=== PATIENT | female | born 1960 | race Caucasian/White ===

== ENCOUNTER 2017-10-06 19:07 | Emergency (ER) | payer MEDICAID, SELFPAY ==
[2017-10-06 19:08] VITALS: BP 88/50; PULSE 61; RESP 14; TEMP 35.8; O2SAT 97; BMI 20.1
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
[2017-10-06] MEDS: Ondansetron ODT 4 MG Tablet PO (19:36)
[2017-10-06] MEDS: HYDROcodone Bitartrate/Apap 5/325 Tablet PO (19:39)
[2017-10-06] MEDS: Lidocaine/Epi/Tetracaine 50 ML 1 APPLIC TOPICAL (19:39)
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
== END 2017-10-06 21:05 | disposition home or self-care (01) ==
PROVIDERS: Emergency Provider Emergency Medicine
DX: S01.81XA Laceration without foreign body of other part of head, initial encounter (principal); S06.0X0A Concussion without loss of consciousness, initial encounter; S80.212A Abrasion, left knee, initial encounter; S80.211A Abrasion, right knee, initial encounter; M25.511 Pain in right shoulder; I95.9 Hypotension, unspecified; V29.88XA Motorcycle rider (driver) (passenger) injured in other specified transport accidents, initial encounter; Y93.9 Activity, unspecified; Y92.9 Unspecified place or not applicable
CPT/HCPCS: 12053; 70450; 70486; 71046; 72125; 73564; 99284

== ENCOUNTER 2020-04-27 18:39 | Emergency (ER) | payer MEDICAID, SELFPAY ==
[2020-04-27 18:40] VITALS: BP 102/66; PULSE 86; RESP 16; TEMP 36.6; O2SAT 99; BMI 22.3
[2020-04-27 18:42] VITALS: BP 102/66; PULSE 81; RESP 16; TEMP 36.6; O2SAT 97
[2020-04-27] MEDS: Amox/Clavulanate 875 MG Tablet PO (19:22)
--- NOTE | 2020-04-27 19:55 | ED.VISSUMM ---
- ER Visit Summary Date of Service: 04/27/20 Chief Complaint: Dog bite History of Present Illness: The patient is a 59 F who presents after a dog bite. She states that this was her own dog. Apparently he got startled and bit her. He bit her on the right thigh left rib and left chest area. The dog is up-to-date on immunizations. The patient needs a tetanus update. She is complaining pain in these local areas. She is able to control the bleeding at home. Physical Examination: Vital signs are reviewed. The chest exam shows some abrasions to the left chest wall and left anterior chest. She also has a small 1 behind the left ear. Her right thigh has multiple puncture wounds. There is a 1 cm puncture wound on the mid right lateral thigh. There is a 2 cm puncture wound on the medial right mid thigh area. Bleeding is controlled. No surrounding erythema. They are tender to palpation. Her neurologic exam is intact distally from these areas. Test Results: None performed Emergency Department Course and Treatment: Patient's tetanus was updated. She was given Augmentin. Under sterile conditions and using chlorhexidine to clean these areas, 2 cc of lidocaine was used to anesthetize the 1 and 2 cm puncture wounds. The 1 cm puncture wound was closed with 1, 5-0 nylon suture. The 2 cm puncture was closed with 2, 5?0 simple nylon sutures. These were covered with a dressing. Patient will have sutures out in 7 days. The sutures were loosely approximated due to the fact that it was a dog bite. I will place her on Augmentin for home. She will call her doctor for a wound check later this week or early next week. Treatment Plan: [] Disposition: Discharge Impression: Dog bite, right leg, right chest This note was generated with [employer] dictation software. It may contain incorrect words, spelling, and punctuation that were not noted in review of the chart prior to signing ED Disposition - Plan for ED Patient: Disposition: Home or Assisted Living Instructions: ED Dog Bite Prescriptions: Amox/Clavulanate Tablet [Augmentin Tablet] 875 mg PO Q12H #20 tab Prescription Printed Referrals: Care Physician,No Primary [Primary Care Provider] -
== END 2020-04-27 20:20 | disposition home or self-care (01) ==
LOC: ED 20:00
PROVIDERS: Emergency Provider Emergency Medicine
DX: S70.371A Other superficial bite of right thigh, initial encounter (principal); S20.372A Other superficial bite of left front wall of thorax, initial encounter; S00.472A Other superficial bite of left ear, initial encounter; W54.0XXA Bitten by dog, initial encounter; Y93.9 Activity, unspecified; Y92.9 Unspecified place or not applicable; Z72.0 Tobacco use
CPT/HCPCS: 12002; 90715; 99284

== ENCOUNTER 2021-08-01 10:45 | Outpatient (CLI) | payer MEDICAID, SELFPAY ==
--- NOTE | 2021-08-01 14:01 | PFTCOMP ---
COMPLETE PULMONARY FUNCTION TEST INTERPRETATION Brief HPI: Patient is a 60 year old female, currently under the care of Adrian Flores, who presents to [facility] for complete pulmonary function tests secondary to diagnosis of dyspnea. Respiratory therapist reports good effort and reproducible results. Interpretation: Forced expiration spirometry shows a severe large airways obstructive ventilatory defect with an FEV1 of 47% predicted. There is a significant bronchodilator response in FVC and FEV1 by strict ATS criteria. Spirograms are of good quality and plateau slowly, indicating slowly emptying areas of the lungs. The respiratory flow volume loop shows decreased expiratory flow rates at all lung volumes consistent with airway obstruction. Lung volumes by body plethysmography show an elevated total lung capacity at 6.37 L, 141% predicted. FRC and RV are elevated out of proportion. Lung volume measurements are consistent with hyperinflation and air-trapping. Diffusion capacity by carbon monoxide is relatively preserved at 71% predicted. The airway resistance is elevated. No previous pulmonary function tests were available for review. Impression: Partially reversible severe large airways obstructive ventilatory defect resulting in air trapping with hyperinflation, and a pattern consistent with COPD/asthma overlap syndrome
== END 2021-08-01 23:59 | disposition home or self-care (01) ==
LOC: PSN 10:46
PROVIDERS: Referring Provider Nurse Practitioner Family; Visit Provider Nurse Practitioner Family
DX: R06.00 Dyspnea, unspecified (principal)
CPT/HCPCS: 94060; 94726; 94729

== ENCOUNTER 2021-08-14 13:15 | Outpatient (CLI) | payer MEDICAID, SELFPAY ==
--- NOTE | 2021-08-14 13:18 | CT_ITS ---
STUDY: LOW DOSE CT LUNG CANCER SCREENING REASON FOR EXAM: Female, 60 years old. Lung cancer screening -- and gt; 30 pk yr hx;asymptomatic; current smoker RADIATION DOSAGE (If Supplied By Facility): CTDIvol = ( 1.46 ) mGy, DLP = ( 50.56 ) mGycm TECHNIQUE: No contrast was administered. Low dose technique was utilized (average mAS-38 and kVp 120). 1.25 mm axial source images with a slice interval of 1.25-mm were reconstructed in lung windows. 2.5 mm axial source images with a slice interval of 2.5-mm were reconstructed in lung windows. 5.0 mm axial source images with a slice interval of 5.0-mm were reconstructed in soft tissue windows. Nodule measured using lung windows on PACS and/or independent workstation with automated measurement of minimum and maximum diameter. Nodule measurement reported as average diameter rounded to the nearest whole number. Growth is defined as an increase ins size of greater than 1.5 mm. COMPARISON: Comparison is made with prior chest radiograph dated 06/28/2021. NODULES: No suspicious nodules are seen. Emphysema: Hyperinflation. Diffuse emphysematous changes involving both lungs. Findings suggest cervical scarring in the anterior medial aspect of the right middle lobe as well as the anterior medial aspect of the lingular segment of the left upper lobe. Endobronchial lesion: Unremarkable Aorta: Mild degree of atherosclerotic plaque formation of the aortic arch. Coronary arteries: Coronary artery calcification. Heart: Unremarkable Pulmonary artery: Unremarkable Mediastinal nodes: Unremarkable Other chest and abdominal findings: CT/Low Dose CT Lung Screening IMPRESSION: Lung-RADS category 2 - Continue annual screening with LDCT in 12 months. IMPORTANT NOTES FOR USE: ACR Lung-RADS Version 1.1 Assessment Categories Release Date: 2018 Category: Coded 0-4 bases on nodule(s) with highest degree of suspicion. Negative screen is defined as categories 1 and 2; a positive screen is defined as categories 3 and 4. Category 3 and 4A nodules that are unchanged on interval CT should be coded as category 2, and individuals returned to screening in 12 months. Category 4X: Category 3 or 4 nodules with additional imaging findings that increase the suspicion of lung cancer, such as spiculation, GGN that doubles in size in 1 year, enlarged lymph notes, etc. Category Modifiers: S (significant finding unrelated to lung cancer) Electronically Signed: Fritz Bautista MD at 14:17 EDT ,
== END 2021-08-14 23:59 | disposition home or self-care (01) ==
LOC: CT 13:16
PROVIDERS: Referring Provider Nurse Practitioner Family; Visit Provider Nurse Practitioner Family
DX: Z87.891 Personal history of nicotine dependence (principal); Z12.2 Encounter for screening for malignant neoplasm of respiratory organs
CPT/HCPCS: 71271

== ENCOUNTER 2021-08-16 16:01 | Outpatient (CLI) | payer MEDICAID, SELFPAY ==
[2021-08-16 16:39] LABS: Absolute Lymphocyte Count 1.92 X10^3/uL (0.83-4.51); Absolute Neutrophil Count 3.6 X10^3/uL (2.0-7.7); Basophil# 0.09 X10^3/uL; Basophil% 1.4 % (0-1); Eosinophil# 0.21 X10^3/uL; Eosinophils% 3.3 % (0-5); Hematocrit 45.1 % (37-47); Hemoglobin 14.4 g/dL (12.0-15.0); Lymphocyte # 1.92 X10^3/ul (0.83-4.51); Lymphocyte % 30.6 % (19-41); Mean Corp Hgb Conc 31.9 g/dL (32-36); Mean Corpuscular Hgb 29.4 pg (27.0-32.0); Mean Corpuscular Volume 92.2 fL (81-99); Mean Platelet Vol. 11.1 fl (6.2-12.0); Monocyte# 0.47 X10^3/uL; Monocyte% 7.5 % (0-10); NRBC Flagged by Analyzer 0 % (0-5); Neutrophil # 3.56 X10^3/uL (2.7-7.7); Neutrophil % 56.9 % (47-70); Platelet Count 228 K/mm3 (150-450); RBC Distribution Width CV 13.7 % (11.6-14.6); RBC Distribution Width SD 46.8 fl (35.1-43.9); Red Blood Count 4.89 M/mm3 (4.2-5.4); White Blood Count 6.3 K/mm3 (4.4-11.0)
[2021-08-16 16:58] LABS: ALB/GLOB Ratio 1.2 RATIO (0.9-2.4); AST(SGOT) 11 U/L (15-37); Alanine Aminotransfer ALT/SGPT 20 U/L (13-56); Albumin, Serum 3.5 g/dL (3.2-5.0); Alkaline Phosphatase 69 U/L (45-117); Anion Gap 0 (5-15); BUN 14 mg/dL (7-18); BUN/Creat Ratio 20.2 RATIO (10-20); Calcium,Total 8.6 mg/dL (8.5-10.1); Chloride 108 mmol/L (98-107); Creatinine, Serum 0.69 mg/dL (0.55-1.02); EST Glomerular Filtration Rate 92 mL/min (>60); Est Glom Filt Rate - Afr Amer 111 mL/min (>60); Globulin 2.9 g/dL (2.2-4.2); Glucose 101 mg/dL (74-106); Potassium 4.1 mmol/L (3.5-5.1); Protein, Total 6.4 g/dL (6.4-8.2); Sodium Level 140 mmol/L (136-145)
== END 2021-08-16 23:59 | disposition home or self-care (01) ==
LOC: BIMLAB 16:02
PROVIDERS: PCP Internal Medicine; Referring Provider Internal Medicine; Visit Provider Internal Medicine
DX: J44.9 Chronic obstructive pulmonary disease, unspecified (principal)
CPT/HCPCS: 36415; 80053; 85025

== ENCOUNTER → 2022-02-18 | Outpatient (CLI) | payer MEDICAID, SELFPAY ==
--- NOTE | 2022-02-18 09:52 | RAD_ITS ---
STUDY: X-RAY - RIGHT ANKLE REASON FOR EXAM: Female, 61 years old. Bilateral ankle pain TECHNIQUE: 3 view(s) of the ankle. COMPARISON: None. FINDINGS: Normal alignment. Normal mortise spacing. Trace anterior ankle effusion. No fracture. No aggressive osseous lesion. Unremarkable soft tissues. RAD/Ankle min 3 Views IMPRESSION: Nonspecific trace ankle effusion. Electronically Signed: John Aden MD at 5:11 EDT ,
--- NOTE | 2022-02-18 09:53 | RAD_ITS ---
STUDY: X-RAY - LEFT ANKLE REASON FOR EXAM: Female, 61 years old. BILAT ANKLE PAIN TECHNIQUE: 3 view(s) of the ankle. COMPARISON: Right ankle radiograph on same day. FINDINGS: Normal ankle alignment and mortise spacing. No fracture or osteochondral defect. No effusion. Mild tibiotalar osteophyte formation. Degenerative changes along the posterior subtalar joint.. Small calcaneal and plantar calcaneal enthesophytes. RAD/Ankle min 3 Views IMPRESSION: No evidence of acute injury. Mild hindfoot cysts degenerative changes. Electronically Signed: John Aden MD at 5:13 EDT ,
--- NOTE | 2022-02-18 09:53 | RAD_ITS ---
STUDY: X-RAY - LEFT KNEE REASON FOR EXAM: Female, 61 years old. BILAT KNEE PAIN TECHNIQUE: 3 view(s) of the knee. COMPARISON: None. FINDINGS: Mild medial compartment joint space narrowing. Minimal patellar and medial compartment osteophyte formation. Small quadriceps tendon enthesophyte. No fracture or osteochondral defect. No dislocation. No effusion. Unremarkable soft tissues. RAD/Knee 3 Views IMPRESSION: Mild medial and patellofemoral compartment osteoarthritis No acute osseous finding. Electronically Signed: John Aden MD at 5:10 EDT ,
--- NOTE | 2022-02-18 10:00 | RAD_ITS ---
STUDY: X-RAY - RIGHT KNEE REASON FOR EXAM: Female, 61 years old. Bilateral Knee Pain TECHNIQUE: 3 view(s) of the knee. COMPARISON: None. FINDINGS: Normal alignment. No fracture or osteochondral defect. Moderate quadriceps patellar enthesophyte. No effusion. Unremarkable soft tissues. RAD/Knee 3 Views IMPRESSION: No evidence of acute injury. Mild degenerative change for age. Electronically Signed: John Aden MD at 5:07 EDT ,
== END | disposition home or self-care (01) ==
LOC: RAD 09:50
PROVIDERS: PCP Internal Medicine; Referring Provider Internal Medicine; Visit Provider Internal Medicine
DX: M25.561 Pain in right knee (principal); M25.562 Pain in left knee; M25.571 Pain in right ankle and joints of right foot; M25.572 Pain in left ankle and joints of left foot
CPT/HCPCS: 73562; 73610

== ENCOUNTER 2022-03-21 12:00 | Outpatient (RCR) | payer MEDICAID, SELFPAY ==
--- NOTE | 2022-02-26 14:28 | HP.PTEVAL_ITS ---
Patient's Visit Information SHANNAN RUIZ is a 61 year old F referred to Physical Therapy by Dr. Helen Rocha MD with a diagnosis of B knee pain. Date of Evaluation: 02/26/22 Physical Therapist: Hesham Peng, PT, ATC - Visit Plan Frequency: 2-3x /Week Duration: 4-6 Weeks Plan: B LE strengthening, balance and proprio, core strengthening, bike, and HEP - Subjective Pt reports she has had B LE achiness for several years which has progressively worsened. Pt reports her L ankle is her greatest concern. Pt reports when she moves her ankle in a circular pattern, and experiences a sharp stabbing pain. Pt reports she has to get surgery on her L ankle in the near future, and is here to strengthen her LE's in preparation for surgery. Pt denies tingling or numbness in LE's at this time, just a deep achy pain. Pt denies any recent or significant injury to her LE's that would have precipitated this pain. Pt reports on days where she has to work long hours, she has sleep difficulty secondary to pain. Pt notes she usually only sleeps 2-3 hours a night in general. Pt has stairs at home, and notes she must negotiate them one step at a time and her L ankle wants to give out on her. Pt reports 2 falls in the past secondary to her L LE giving out on her, with the most recent one being 2 months ago. 5/10 pain at rest, 10/10 pain at worst (last time this level of pain occurred, pt was sleeping) - Pain L ankle Pain Intensity (Out of 10): 5 Pain Intensity Range: 10 - Objective Neuro: B LE sensation is WNL to light touch. B patellar reflex= 2/3. MMT: R LE is grossly 4/5 throughout while L LE is grossly 4-/5 throughout. ROM: B LE's are WFL when compared bilaterally. Gait: Pt is able to ambulate greater than 1000' I without difficulty. Stairs: Pt is able to negotiate one flight with the use of 2 handrails and reciprocally - Balance/Special Test Scores Lower Extremity Functional Score: 53 - Goals Goal 1:: Increase B LE strength x 1 grade to aid with stair negotiation Goal Time Frame: 4-6 Weeks Goal 2:: Pt will be able to negotiate 10 stairs with one UE reciprocally to aid with I in community Goal Time Frame: 4-6 Weeks Goal 3:: Decrease B LE pain x 50% to aid with sleep Goal Time Frame: 4-6 Weeks Goal 4:: I with HEP Goal Time Frame: 4-6 Weeks - Rehabilitation Potential Physical Therapy Diagnosis: Pt has B knee pain, B LE weakness, and difficulty with stair negotiation secondary to B LE debility Rehabilitation Potential: Good - Anticipated Interventions Patient/Client Instruction: Educate patient on: Condition, Plan of Care For the Purpose of:: To improve self management Therapeutic Exercise to Include: Strength training, Endurance training, Balance training, Gait and locomotor training For the Purpose of:: To decrease pain, To improve muscle performance and motor function, To improve ability of physical actions for home/community/work/leisure Thank you for the opportunity to evaluate your patient. For Medicare and Medicare HMO plans, please review the plan of care and approve it. It will need to be FAXED BACK to us at [phone] for Medicare purposes. For Medicare only, by signing this I certify the plan of care. Please let me know if there are questions or concerns regarding this plan of care. Physician Signature: Date:
== END 2022-03-21 19:00 | disposition home or self-care (01) ==
LOC: PT 12:00
PROVIDERS: PCP Internal Medicine; Referring Provider Internal Medicine; Visit Provider Internal Medicine
DX: M25.561 Pain in right knee (principal); M25.562 Pain in left knee
CPT/HCPCS: 97110; 97161

== ENCOUNTER → 2022-09-24 | Outpatient (CLI) | payer MEDICAID, SELFPAY ==
--- NOTE | 2022-09-24 13:07 | CT_ITS ---
STUDY: LOW DOSE CT LUNG CANCER SCREENING REASON FOR EXAM: Female, 61 years old. Lung cancer screening -- and gt;20 pk yr hx;current smoker;asymptomatic RADIATION DOSAGE (If Supplied By Facility): CTDIvol = ( 1.59 ) mGy, DLP = ( 54.60 ) mGycm TECHNIQUE: No contrast was administered. Low dose technique was utilized (average mAS-38 and kVp 120). 1.25 mm axial source images with a slice interval of 1.25-mm were reconstructed in lung windows. 2.5 mm axial source images with a slice interval of 2.5-mm were reconstructed in lung windows. 5.0 mm axial source images with a slice interval of 5.0-mm were reconstructed in soft tissue windows. COMPARISON: Comparison is made with prior study dated August 14, 2021. NODULES: No suspicious nodules are seen. Emphysema: Hyperinflation. Emphysematous changes more prominent in the upper lobes. Endobronchial lesion: None Aorta: Atherosclerotic plaque formation of the aortic arch. CORONARY ARTERIES: Coronary artery calcification is seen. Heart: Unremarkable Pulmonary artery: Unremarkable Mediastinal nodes: Small mediastinal lymph nodes. Other chest and abdominal findings: CT/Low Dose CT Lung Screening IMPRESSION: Lung-RADS category 2 - Continue annual screening with LDCT in 12 months. IMPORTANT NOTES FOR USE: ACR Lung-RADS Version 1.1 Assessment Categories Release Date: 2018 Category: Coded 0-4 bases on nodule(s) with highest degree of suspicion. Negative screen is defined as categories 1 and 2; a positive screen is defined as categories 3 and 4. Category 3 and 4A nodules that are unchanged on interval CT should be coded as category 2, and individuals returned to screening in 12 months. Category 4X: Category 3 or 4 nodules with additional imaging findings that increase the suspicion of lung cancer, such as spiculation, GGN that doubles in size in 1 year, enlarged lymph notes, etc. Category Modifiers: S (significant finding unrelated to lung cancer) Electronically Signed: Fritz Bautista MD at 13:42 EDT ,
== END | disposition home or self-care (01) ==
LOC: CT 13:07
PROVIDERS: PCP Internal Medicine; Referring Provider Nurse Practitioner Family; Visit Provider Nurse Practitioner Family
DX: Z87.891 Personal history of nicotine dependence (principal); Z12.2 Encounter for screening for malignant neoplasm of respiratory organs
CPT/HCPCS: 71271

== ENCOUNTER → 2022-11-25 | Outpatient (CLI) | payer MEDICAID, SELFPAY ==
[2022-11-25 12:35] LABS: Absolute Lymphocyte Count 1.79 X10^3/uL (0.83-4.51); Absolute Neutrophil Count 4.9 X10^3/uL (2.0-7.7); Basophil# 0.08 X10^3/uL; Eosinophil# 0.19 X10^3/uL; Eosinophils% 2.5 % (0-5); Hematocrit 46.5 % (37-47); Hemoglobin 14.8 g/dL (12.0-15.0); Lymphocyte # 1.79 X10^3/ul (0.83-4.51); Lymphocyte % 23.5 % (19-41); Mean Corp Hgb Conc 31.8 g/dL (32-36); Mean Corpuscular Hgb 29.7 pg (27.0-32.0); Mean Corpuscular Volume 93.2 fL (81-99); Mean Platelet Vol. 11.4 fl (6.2-12.0); Monocyte# 0.62 X10^3/uL; Monocyte% 8.1 % (0-10); NRBC Flagged by Analyzer 0 % (0-5); Neutrophil # 4.91 X10^3/uL (2.7-7.7); Neutrophil % 64.5 % (47-70); Platelet Count 258 K/mm3 (150-450); RBC Distribution Width CV 14.1 % (11.6-14.6); Red Blood Count 4.99 M/mm3 (4.2-5.4); White Blood Count 7.6 K/mm3 (4.4-11.0)
[2022-11-25 13:09] LABS: ALB/GLOB Ratio 1.1 RATIO (0.9-2.4); AST(SGOT) 14 U/L (15-37); Alanine Aminotransfer ALT/SGPT 19 U/L (13-56); Albumin, Serum 3.6 g/dL (3.2-5.0); Alkaline Phosphatase 77 U/L (45-117); Anion Gap 2 (5-15); BUN 11 mg/dL (7-18); BUN/Creat Ratio 13.7 RATIO (10-20); Calcium,Total 8.8 mg/dL (8.5-10.1); Chloride 110 mmol/L (98-107); EST Glomerular Filtration Rate 77 mL/min (>60); Est Glom Filt Rate - Afr Amer 94 mL/min (>60); Globulin 3.2 g/dL (2.2-4.2); Glucose 92 mg/dL (74-106); Potassium 4.1 mmol/L (3.5-5.1); Protein, Total 6.8 g/dL (6.4-8.2); Sodium Level 142 mmol/L (136-145); T4 Free Direct 0.98 ng/dL (0.76-1.46); Thyroid Stim Hormone (TSH) 2.57 uIU/mL (0.358-3.74)
== END | disposition home or self-care (01) ==
LOC: BIMLAB 11:14
PROVIDERS: PCP Internal Medicine; Visit Provider Internal Medicine
DX: Z13.29 Encounter for screening for other suspected endocrine disorder (principal); J44.9 Chronic obstructive pulmonary disease, unspecified
CPT/HCPCS: 36415; 80053; 84439; 84443; 85025

== ENCOUNTER 2024-03-03 04:30 | Emergency (ER) | payer SELFPAY ==
[2024-03-03] VITALS (7 sets, daily range): BP systolic 97–151; BP diastolic 84–95; PULSE 115–122; RESP 20–32; TEMP 35.7–36.9; O2SAT 90–95; BMI 22.4
--- NOTE | 2024-03-03 04:50 | RAD_ITS ---
EXAM: XR CHEST, 1 VIEW CLINICAL INDICATION: cough TECHNIQUE: Frontal view of the chest. COMPARISON: 2 view chest 06/28/2021 FINDINGS: LUNGS AND PLEURAL SPACES: Bibasilar airspace disease. Hyperinflation. No pneumothorax. No effusion. HEART: Unremarkable. Cardiac silhouette not enlarged. MEDIASTINUM: Central airways and mediastinal contour are unremarkable. BONES/JOINTS: Unremarkable. No acute fracture. SOFT TISSUES: Unremarkable. RAD/Chest 1 View (Portable) IMPRESSION: Bibasilar airspace disease. Findings may indicate atelectasis or infection, superimposed on emphysematous changes. Electronically Signed: Hesham Lynn MD at 5:55 EDT ,
--- NOTE | 2024-03-03 04:51 | EKG12_ITS ---
Test Reason : sob Blood Pressure : / mmHG Vent. Rate : 115 BPM Atrial Rate : 115 BPM P-R Int : 174 ms QRS Dur : 072 ms QT Int : 326 ms P-R-T Axes : 076 086 067 degrees QTc Int : 450 ms Sinus tachycardia Possible Left atrial enlargement Nonspecific ST abnormality Abnormal ECG Confirmed by Orlando Fragoso ([id number]), photographic editor ROSELIA RAMOS ([id number]) on 03/04/2024 6:38:52 AM Referred By: Angel Confirmed By:Orlando Fragoso
[2024-03-03] MEDS: Albuterol 2.5 MG/3 ML VIAL.NEB. INHALATION (04:54)
[2024-03-03] MEDS: Ipratropium/Albuterol Sulfate 3 ML AMPUL.NEB INHALATION ×2 (04:54)
[2024-03-03] MEDS: MethylPREDNISolone 125 MG/2 ML Vial IV (05:07)
[2024-03-03 05:12] LABS: Absolute Lymphocyte Count 2.33 X10^3/uL (0.83-4.51); Absolute Neutrophil Count 7.1 X10^3/uL (2.0-7.7); Basophil# 0.08 X10^3/uL; Basophil% 0.7 % (0-1); Eosinophil# 0.14 X10^3/uL; Eosinophils% 1.3 % (0-5); Hematocrit 45.4 % (37-47); Lymphocyte # 2.33 X10^3/ul (0.83-4.51); Lymphocyte % 21.5 % (19-41); Mean Corpuscular Hgb 30.4 pg (27.0-32.0); Mean Corpuscular Volume 92.1 fL (81-99); Mean Platelet Vol. 11.1 fl (6.2-12.0); Monocyte# 1.12 X10^3/uL; Monocyte% 10.3 % (0-10); NRBC Flagged by Analyzer 0 % (0-5); Neutrophil # 7.12 X10^3/uL (2.7-7.7); Neutrophil % 65.8 % (47-70); Platelet Count 236 K/mm3 (150-450); RBC Distribution Width CV 13.6 % (11.6-14.6); RBC Distribution Width SD 46.5 fl (35.1-43.9); Red Blood Count 4.93 M/mm3 (4.2-5.4); White Blood Count 10.8 K/mm3 (4.4-11.0)
[2024-03-03 05:28] LABS: Anion Gap 2 (5-15); BUN 6 mg/dL (7-18); BUN/Creat Ratio 8.8 RATIO (10-20); Chloride 105 mmol/L (98-107); Creatinine, Serum 0.68 mg/dL (0.55-1.02); EST Glomerular Filtration Rate 93 mL/min (>60); Est Glom Filt Rate - Afr Amer 113 mL/min (>60); Estimated Creatinine Clearance 74.07 ml/min; Glucose 152 mg/dL (74-106); Potassium 3.8 mmol/L (3.5-5.1); Sodium Level 140 mmol/L (136-145)
--- NOTE | 2024-03-03 05:55 | EDS_ITS ---
HPI History of Present Illness Chief Complaint: Shortness of Breath Informant: patient and family Narrative Narrative: Patient is a 63-year-old female with past medical history of COPD who continues to smoke. She states she has had multiple weeks of shortness of breath and cough. She reports that her symptoms used to be controlled with albuterol and Symbicort but that she lost her insurance and therefore has not been able to afford the medication. She states she continues to smoke although she has cut back. She denies any known sick contacts and states she has had no fevers or chills or chest pain. She states that her shortness of breath has worsened continuously as she has been out of her medications and secondary to this comes in for evaluation [facility] Medical History (Updated 03/03/24 @ 06:[address] Milton Kong, DO) Mammogram declined Colonoscopy refused Fatigue Screening for thyroid disorder Tobacco use disorder, continuous Bilateral ankle pain Bilateral knee pain Asthma-COPD overlap syndrome Encounter to establish care History of tobacco use Encounter for screening for malignant neoplasm of lung in current smoker with 30 pack year history or greater Dyspnea COPD (chronic obstructive pulmonary disease) Encounter for screening for COVID-19 Acute bronchitis, unspecified Home Medications ?Medication ?Instructions ?Recorded ?Last Taken ?Type acetaminophen 160 mg chewable 640 mg PO ONCE 07/05/21 Unknown History tablet (Children's Tylenol) budesonide-formoterol HFA 160 See Rx Instructions .Route 03/25/23 Unknown Rx mcg-4.5 mcg/actuation aerosol .COMPLEX #11 grams inhaler albuterol sulfate 90 mcg/actuation See Rx Instructions .Route 05/06/23 Unknown Rx aerosol inhaler .COMPLEX #8.5 grams albuterol sulfate 90 mcg/actuation 2 puff inhalation Q4H PRN PRN 03/03/24 Unknown Rx aerosol inhaler (Ventolin HFA) Wheezing/SOB #1 device fluticasone furoate 100 1 inh inhalation DAILY #60 ea 03/03/24 Unknown Rx mcg-vilanterol 25 mcg/dose inhalation powder (Breo Ellipta) prednisone 10 mg tablet 10 mg PO DAILY #63 tabs 03/03/24 Unknown Rx Allergy/AdvReac Type Severity Reaction Status Date / Time weir Allergy unknown Verified 03/03/24 04:30 Fish Containing Products Allergy Vomiting Verified 03/03/24 04:30 macadamia nut oil Allergy Hives Verified 03/03/24 04:30 Family History Mother Cancer Hodgkin disease Hypertension Diabetes Brother Cancer Diabetes Son Cancer Surgical History History of hernia repair History of dental surgery Social History Smoking Status: Current every day smoker tobacco type: cigarettes Tobacco: How many years used: 40 how long ago did patient quit smoking: smoked [id number], then [id number], now smokes 5-6 cigarettes/day alcohol intake: current alcohol intake frequency: holidays/special occasions only substance use type: does not use what type of physical activity do you participate in: none ROS ROS ED Constitutional Constitutional ED: Denies chills or fever(s) Eyes Eyes: Denies change in vision ENT ENT ED: Denies sore throat Cardiovascular Cardiovascular: Denies chest pain Respiratory/Chest Respiratory/Chest: Reports cough and dyspnea Gastrointestinal Gastrointestinal: Denies abdominal pain, diarrhea, nausea or vomiting Genitourinary Genitourinary ED: Denies dysuria Musculoskeletal Musculoskeletal: Denies myalgias Integumentary Denies rash Neurologic Neurologic: Denies headache(s) Hematologic/Lymphatic Hematologic/Lymphatic: Denies easy bleeding or easy bruising Allergic/Immunologic Allergic/Immunologic ED: Denies mouth swelling or tongue swelling EXAM Physical Exam Const Vital Signs: 03/03/24 04:30 03/03/24 04:35 03/03/24 04:40 Temperature 96.3 F L 98.5 F Temperature Source Temporal Oral Pulse Rate 115 H 118 H Respiratory Rate 32 H 25 H Respiratory Effort Short of Breath Respiratory Depth Deep Respiratory Pattern Tachypnea Blood Pressure 97/84 H 138/95 H Blood Pressure Mean 88 109 Pulse Ox 90 94 Oxygen Delivery Method Room Air Room Air Room Air 03/03/24 04:56 03/03/24 05:30 03/03/24 05:34 Temperature 98.5 F Temperature Source Oral Pulse Rate 119 H 122 H 122 H Respiratory Rate 23 H 21 H 21 H Respiratory Effort Respiratory Depth Respiratory Pattern Tachypnea Blood Pressure 151/87 H 151/87 H Blood Pressure Mean 108 108 Pulse Ox 95 95 Oxygen Delivery Method Room Air Room Air 03/03/24 05:55 Temperature 98.5 F Temperature Source Pulse Rate 121 H Respiratory Rate 20 H Respiratory Effort Respiratory Depth Respiratory Pattern Blood Pressure 134/93 H Blood Pressure Mean 106 Pulse Ox 94 Oxygen Delivery Method Positive well nourished and well developed General Appearance ED: well developed; Negative for pallor HEENT HEENT Narrative: No tongue or lip swelling no oral lesions no airway edema or compromise There is cobblestoning noted in the posterior pharynx consistent with sinus drainage without secondary findings to suggest infection Eyes PERRL and EOMs intact bilaterally General Eye ED: Negative for pale conjunctiva or scleral icterus Neck supple and no JVD Neck Narrative: No crepitance palpated Chest Wall palpation of chest normal Chest Narrative: No bony deformity or crepitance Resp Resp Narrative: Patient's breath sounds are severely diminished throughout with diffuse inspiratory and expiratory wheezing. Patient is in moderate respiratory d istress with tachypnea and accessory muscle use Cardio regular rhythm Rate: tachycardic and other Other Details: Radial and carotid pulses are equal and symmetric Extremity normal to inspection Extremity Narrative: No asymmetric edema no pitting edema negative Homans' sign bilaterally Neuro oriented x3, CN's II-XII intact bilaterally and no sensory deficits noted Sensorium / Orientation: alert Motor Exam: strength 5/5 throughout Psych mental status grossly normal Skin no rashes or lesions noted General Skin Exam: Negative for jaundice or pallor MDM MDM MDM Narrative Medical decision making narrative: Patient arrived to the ER tachypneic but satting in the low to mid 90s on room air. History and exam is consistent with COPD exacerbation although this could be secondary to pneumonia or pneumothorax or pleural effusion or potential viral infection such as COVID or influenza or RSV. I discussed with patient obtaining a viral swab but she does not want 1 performed. There is concern that her s ymptoms could be related to acute blood loss anemia or acute kidney injury or electrolyte abnormality. She did agree to blood work and a chest x-ray so those were ordered. Labs revealed no clinically significant findings and chest x-ray revealed COPD changes to the lungs without infiltrate pneumothorax or pleural effusion. She was given IV Solu-Medrol as well as 2 DuoNebs and 1 albuterol. With the breathing treatments and steroids she had improvement of her breath sounds and improvement in her work of breathing. I discussed with patient potential admission secondary to persistent work of breathing although it has improved from her initial evaluation. The patient states after the medication she feels much better and that if she can only have her medication for home she believes she will do just fine. Therefore as the patient is requesting to go home and she has had improvement in her work of breathing and her pulse ox remains at a stable value for history of COPD between 90 and 95% I will prescribe an albuterol rescue inhaler Breo as a maintenance Hailer and a prednisone taper to help control symptoms. Patient does agree to return to the hospital if her symptoms worsen despite outpatient therapy or if she has any further concerns. History & Record Review Discussion w/independent historian: Patient and Family Lab Data Attestation: I reviewed the patient's lab results. Labs: Laboratory Results - last 24 hr 03/03/24 04:38 WBC 10.8 RBC 4.93 Hgb 15.0 Hct 45.4 MCV 92.1 MCH 30.4 MCHC 33.0 RDW Std Deviation 46.5 H RDW Coeff of Kimberly 13.6 Plt Count 236 MPV 11.1 Immature Gran % (Auto) 0.400 Neut % (Auto) 65.8 Lymph % (Auto) 21.5 [place] % (Auto) 10.3 H Eos % (Auto) 1.3 Baso % (Auto) 0.7 Absolute Neuts (auto) 7.1 Absolute Lymphs (auto) 2.33 Nucleated RBC % 0 Sodium 140 Potassium 3.8 Chloride 105 Carbon Dioxide 33.0 H Anion Gap 2 L BUN 6 L Creatinine 0.68 Estim Creat Clear Calc 74.07 Est GFR (MDRD) Af Amer 113 Est GFR (MDRD) Non-Af 93 BUN/Creatinine Ratio 8.8 L Glucose 152 H Calcium 9.0 Magnesium 2.0 B-Natriuretic Peptide Cancelled Radiography Diagnostic Testin view chest x-ray as interpreted by the emergency medicine physician reveals hyperinflated lungs consistent with COPD without pneumothorax infiltrate or ple ural effusion Discharge Plan Triage Chief Complaint: Shortness of Breath ED Provider: Milton Kong Dx/Rx/DC Orders Clinical Impression: COPD exacerbation, Tobacco use disorder, continuous Instructions: COPD: Wheezing and Chest Tightness Prescriptions: New albuterol sulfate [Ventolin HFA] 90 mcg/actuation HFA aerosol inhaler 2 puff inhalation Q4H PRN PRN (Reason: Wheezing/SOB) Qty: 1 3RF prednisone 10 mg tablet 10 mg PO DAILY Qty: 63 0RF Rx Instructions: 60 mg p.o. daily ?3 days, 50 mg p.o. daily ?3 days, 40 mg p.o. daily ?3 days, 30 mg p.o. daily ?3 days, 20 mg p.o. daily ?3 days, 10 mg p.o. daily ?3 days. fluticasone furoate-vilanterol [Breo Ellipta] 100-25 mcg/dose blister with device 1 inh inhalation DAILY Qty: 60 2RF No Action acetaminophen [Children's Tylenol] 160 mg tablet,chewable 640 mg PO ONCE budesonide-formoterol 160-4.5 mcg/actuation HFA aerosol inhaler See Rx Instructions .ROUTE .COMPLEX Qty: 11 1RF Dose Instruction: Inhale 2 puffs by mouth twice daily Rx Instructions: Inhale 2 puffs by mouth twice daily albuterol sulfate 90 mcg/actuation HFA aerosol inhaler See Rx Instructions .ROUTE .COMPLEX Qty: 8.5 0RF Dose Instruction: INHALE 2 PUFFS BY MOUTH EVERY 6 HOURS NEEDED FOR SHORTNESS OF BREATH FOR WHEEZING Rx Instructions: INHALE 2 PUFFS BY MOUTH EVERY 6 HOURS NEEDED FOR SHORTNESS OF BREATH FOR WHEEZING Stand Alone Forms: ED Work / School Excuse Primary Care Provider: Helen Rocha Referrals: Helen Rocha MD [Primary Care Provider] - Activity Restrictions/Additional Instructions: Use the steroid and inhalers as directed to help control your COPD and return to the ER if you have any further concerns or worsening of symptoms despite the treatment Print Language: Macanese Disposition Disposition: Home, Self Care
[2024-03-03] MEDS: Albuterol Sulfate 8 gm Inhaler (60 puffs) 2 PUFF INHALATION (06:07)
== END 2024-03-03 06:07 | disposition home or self-care (01) ==
PROVIDERS: Emergency Provider Emergency Medicine; PCP Internal Medicine; Visit Provider Emergency Medicine
DX: J44.1 Chronic obstructive pulmonary disease with (acute) exacerbation (principal); F17.210 Nicotine dependence, cigarettes, uncomplicated; Z79.51 Long term (current) use of inhaled steroids
CPT/HCPCS: 71045; 80048; 83735; 85025; 93005; 94640; 96374; 99284; A4216

== ENCOUNTER 2024-06-09 08:43 | Observation (INO) | payer MEDICAID, SELFPAY ==
[2024-06-09] VITALS (15 sets, daily range): BP systolic 104–171; BP diastolic 72–108; PULSE 72–117; RESP 16–24; TEMP 35.9–36.9; O2SAT 88–96; BMI 21.7; BMI 24.5
--- NOTE | 2024-06-09 08:58 | RAD_ITS ---
HISTORY: dyspnea. TECHNIQUE: XR Chest 1 View. COMPARISON: 03/03/2024. FINDINGS: CARDIOMEDIASTINAL BORDERS: Cardiac silhouette within normal limits in size. Mediastinal contour unremarkable with calcification of the aortic knob. LUNGS: Chronic hyperinflation with decreased linear opacities in the lung bases. PLEURA: No pleural effusion or pneumothorax seen. OSSEOUS STRUCTURES: Small bone island in the right humeral head incidentally noted. RAD/Chest 1 View (Portable) IMPRESSION: Mild atelectasis or inflammation in the lung bases, decreased from prior. Electronically Signed: Rocío Guerrero MD at 9:40 EST ,
--- NOTE | 2024-06-09 08:58 | EKG12_ITS ---
Test Reason : SOB Blood Pressure : */* mmHG Vent. Rate : 110 BPM Atrial Rate : 110 BPM P-R Int : 138 ms QRS Dur : 76 ms QT Int : 336 ms P-R-T Axes : 83 80 68 degrees QTcB Int : 454 ms Sinus tachycardia Otherwise normal ECG Confirmed by CRISTOPHER WALDEN, REED ([id number]), visual effects editor ROSELIA RAMOS ([id number]) on 06/15/2024 7:05:37 AM Referred By: UJAN Confirmed By: REED NICHOLAS MD
--- NOTE | 2024-06-09 08:59 | ED.VIS.DYS ---
HPI History of Present Illness Chief Complaint: Shortness of Breath Detail of Chief Complaint: Shortness of breath Informant: patient Narrative Narrative: Patient presents to the emergency department complaint shortness of breath that started about 2 to 3 days ago. Patient was seen by her primary care physician 2 days ago and started on Levaquin as well as prednisone and bends and 8. Patient initially had cough but with peds and 8 is better. At times cough productive of some white phlegm. This morning started with some left-sided chest discomfort as intermittent and sharp. Denies recent travel or surgery. She tells me 2 days ago in her PCPs office her O2 sat was 89 to 91% at that time. She does not wear home O2. She has history of COPD and asthma. She continues to smoke but trying to quit. [facility] Medical History Mammogram declined Colonoscopy refused Fatigue Screening for thyroid disorder Tobacco use disorder, continuous Bilateral ankle pain Bilateral knee pain Asthma-COPD overlap syndrome Encounter to establish care History of tobacco use Encounter for screening for malignant neoplasm of lung in current smoker with 30 pack year history or greater Dyspnea COPD (chronic obstructive pulmonary disease) Encounter for screening for COVID-19 Acute bronchitis, unspecified Home Medications ?Medication ?Instructions ?Recorded ?Last Taken ?Type budesonide-formoterol HFA 160 See Rx Instructions .Route 03/31/24 06/09/24 Rx mcg-4.5 mcg/actuation aerosol .COMPLEX #11 grams inhaler inhalational spacing device #1 ea 03/31/24 Unknown Rx (BreatheRite MDI Spacer) benzonatate 100 mg capsule 100 mg PO BID-TID PRN cough #90 06/07/24 06/09/24 Rx caps levofloxacin 750 mg tablet 750 mg PO Q24H #5 tabs 06/07/24 06/08/24 Rx prednisone 20 mg tablet 20 mg PO QDAY #10 tabs 06/07/24 06/08/24 Rx albuterol sulfate 90 mcg/actuation 2 puff inhalation Q4H PRN 06/09/24 06/09/24 History aerosol inhaler (Ventolin HFA) Wheezing/SOB guaifenesin 600 mg tablet, 1,200 mg PO Q12H PRN cough 06/09/24 06/08/24 History extended release 12 hr (Mucinex) Allergy/AdvReac Type Severity Reaction Status Date / Time weir Allergy unknown Verified 06/09/24 08:46 Fish Containing Products Allergy Vomiting Verified 06/09/24 08:46 macadamia nut oil Allergy Hives Verified 06/09/24 08:46 Family History Mother Cancer Hodgkin disease Hypertension Diabetes Brother Cancer Diabetes Son Cancer Surgical History History of hernia repair History of dental surgery Social History Smoking Status: Current every day smoker tobacco type: cigarettes Tobacco: How many years used: 40 how long ago did patient quit smoking: smoked [id number], then [id number], now smokes 5-6 cigarettes/day alcohol intake: current alcohol intake frequency: holidays/special occasions only substance use type: does not use what type of physical activity do you participate in: none ROS ROS ED Review of Systems ROS Unobtainable: other Constitutional Constitutional ED: Reports lethargy; Denies chills, fever(s), sweats or weight loss Eyes Eyes: Denies blurry vision, change in vision or diplopia ENT ENT ED: Denies rhinorrhea or sore throat Cardiovascular Cardiovascular: Reports chest pain; Denies orthopnea or racing heartbeat Respiratory/Chest Respiratory/Chest: Reports cough, dyspnea, dyspnea on exertion and sputum; Denies orthopnea Gastrointestinal Gastrointestinal: Denies abdominal pain, diarrhea, nausea or vomiting Genitourinary Genitourinary ED: Denies dysuria, hematuria or urinary frequency Musculoskeletal Musculoskeletal: Denies arthralgias, back pain, myalgias or neck pain Integumentary Denies abscess, Abrasions or rash Neurologic Neurologic: Denies headache(s) or weakness Psychiatric Psychiatric: Denies anxiety, depression or suicidal thoughts Endocrine Endocrinology: Denies polydipsia, polyphagia or polyuria Hematologic/Lymphatic Hematologic/Lymphatic: Denies easy bleeding, easy bruising or lymphadenopathy Allergic/Immunologic Allergic/Immunologic ED: Denies mouth swelling, tongue swelling or urticaria EXAM Physical Exam Const Vital Signs: 06/09/24 08:43 06/09/24 08:46 06/09/24 09:10 Temperature 96.6 F L Temperature Source Temporal Pulse Rate 113 H 117 H Respiratory Rate 24 H 20 H Respiratory Effort Respiratory Depth Respiratory Pattern Normal Blood Pressure 171/108 H Blood Pressure Mean 129 Pulse Ox 88 96 Oxygen Delivery Method Room Air Nasal Cannula Oxygen Flow Rate (L/min) 2 06/09/24 09:34 06/09/24 09:36 06/09/24 09:46 Temperature Temperature Source Pulse Rate 104 H Respiratory Rate 16 Respiratory Effort Short of Breath Respiratory Depth Shallow Respiratory Pattern Tachypnea Normal Blood Pressure Blood Pressure Mean Pulse Ox Oxygen Delivery Method Nasal Cannula Oxygen Flow Rate (L/min) 3 06/09/24 09:46 06/09/24 10:19 Temperature 97.3 F L Temperature Source Temporal Pulse Rate 105 H 108 H Respiratory Rate 24 H 20 H Respiratory Effort Respiratory Depth Respiratory Pattern Normal Blood Pressure 114/76 Blood Pressure Mean 88 Pulse Ox 93 Oxygen Delivery Method Nasal Cannula Oxygen Flow Rate (L/min) 3 Positive well nourished and well developed General Appearance ED: well developed and NAD HEENT Reports TM's clear and moist mucous membranes normocephalic and atraumatic; Negative for trauma or tenderness Tympanic Membrane ED: Yes TM's clear Eyes PERRL and EOMs intact bilaterally General Eye ED: Negative for pale conjunctiva or scleral icterus Neck no lymphadenopathy, supple and no JVD General: Negative for tenderness Chest Wall inspection of chest normal and palpation of chest normal Chest: Negative for tenderness Resp No normal respiratory effort and No clear to auscultation bilaterally Resp Narrative: Patient with mild conversational dyspnea. Mild tachypnea. Diminished breath sounds bilaterally with expiratory wheezes noted throughout. No accessory muscle use or retractions. Effort and Inspection: Negative for respiratory distress or pain with movement Auscultation: Negative for rhonchi, wheezes or diminished lung sounds Cardio regular rate, regular rhythm, S1 normal heart sound, S2 normal heart sound and no murmurs Peripheral Pulses: pulses 2+ throughout GI normal to inspection, nondistended, normoactive bowel sounds, soft to palpation, non-tender, non-distended and no masses Back/Spine no CVA tenderness and no thoracic nor lumbar tenderness Extremity normal to inspection General Extremety ED: Negative for edema General Extremity: Negative for edema Neuro oriented x3, CN's II-XII intact bilaterally, no sensory deficits noted and gait normal Sensorium / Orientation: awake, alert, oriented to person, oriented to place and oriented to time Motor Exam: strength 5/5 throughout and strength abnormal Psych mental status grossly normal Skin no rashes or lesions noted and no wounds MDM MDM MDM Narrative Medical decision making narrative: Patient presents with shortness of breath after being on antibiotics for 2 days and prednisone. History of COPD. Clinically looks well. She was hypoxic on arrival to the emergency department with O2 sat of 88% on room air. IV line established. EKG obtained arrival showed a sinus tachycardia with ventricular rate of 110 bpm with no acute ST segment changes. CBC with differential showed a white count of 9.6 with hemoglobin 15.5 and platelet count of 309. Chemistries unremarkable. Troponin was normal at 6. 1 view chest x-ray obtained interpreted as no evidence of infiltrate or acute process. Patient was given DuoNeb aerosol as well as albuterol aerosols and started on Solu-Medrol. After treatment she did feel improved but upon ambulating without oxygen her O2 sat drops to 86% on room air. Discussed case with hospitalist will evaluate patient for admission for COPD exacerbation respiratory failure with hypoxemia Lab Data Attestation: I reviewed the patient's lab results. Labs: Laboratory Results - last 24 hr 06/09/24 09:07 WBC 9.6 RBC 5.34 Hgb 15.5 H Hct 47.8 H MCV 89.5 MCH 29.0 MCHC 32.4 RDW Std Deviation 45.1 H RDW Coeff of Kimberly 13.7 Plt Count 309 MPV 10.0 Immature Gran % (Auto) 0.400 Neut % (Auto) 68.0 Lymph % (Auto) 20.0 [place] % (Auto) 10.1 H Eos % (Auto) 0.7 Baso % (Auto) 0.8 Absolute Neuts (auto) 6.6 Absolute Lymphs (auto) 1.93 Nucleated RBC % 0 D-Dimer Quant (PE/DVT) Cancelled Sodium 142 Potassium 4.3 Chloride 102 Carbon Dioxide 31.0 Anion Gap 9 BUN 9 Creatinine 0.82 Estim Creat Clear Calc 61.43 Est GFR (MDRD) Af Amer 90 Est GFR (MDRD) Non-Af 74 BUN/Creatinine Ratio 10.9 Glucose 98 Calcium 9.5 Troponin I High Sens 6 Radiography Diagnostic Testing: Clinical Impression(s) from Imaging Studies Chest X-Ray 06/09/24 08:58 IMPRESSION: Mild atelectasis or inflammation in the lung bases, decreased from prior. Electronically Signed: Rocío Guerrero MD at 9:40 EST , 1 view chest x-ray obtained interpreted by myself as no evidence of infiltrate or pneumothorax or acute disease process. Radiology felt there was mild atelectasis or inflammation in the lung bases which is decreased from prior. EKG Initial EKG: Attestation: I personally reviewed and interpreted this EKG as follows: Comments: Sinus tachycardia with rate of 110 bpm with no acute ST segment changes Discharge Plan Dx/Rx/DC Orders Clinical Impression: COPD exacerbation, Respiratory failure, Hypoxemia Disposition Disposition: Acute Care Hospital [facility]
[2024-06-09] MEDS: Ipratropium/Albuterol Sulfate 3 ML AMPUL.NEB INHALATION ×4 (09:10→23:40)
[2024-06-09] MEDS: Albuterol 2.5 MG/3 ML VIAL.NEB. INHALATION ×3 (09:10→10:19)
[2024-06-09 09:15] LABS: Absolute Lymphocyte Count 1.93 X10^3/uL (0.83-4.51); Absolute Neutrophil Count 6.6 X10^3/uL (2.0-7.7); Basophil# 0.08 X10^3/uL; Basophil% 0.8 % (0-1); Eosinophil# 0.07 X10^3/uL; Eosinophils% 0.7 % (0-5); Hematocrit 47.8 % (37-47); Hemoglobin 15.5 g/dL (12.0-15.0); Lymphocyte # 1.93 X10^3/ul (0.83-4.51); Mean Corp Hgb Conc 32.4 g/dL (32-36); Mean Corpuscular Volume 89.5 fL (81-99); Monocyte# 0.97 X10^3/uL; Monocyte% 10.1 % (0-10); NRBC Flagged by Analyzer 0 % (0-5); Neutrophil # 6.55 X10^3/uL (2.7-7.7); Platelet Count 309 K/mm3 (150-450); RBC Distribution Width CV 13.7 % (11.6-14.6); RBC Distribution Width SD 45.1 fl (35.1-43.9); Red Blood Count 5.34 M/mm3 (4.2-5.4); White Blood Count 9.6 K/mm3 (4.4-11.0)
[2024-06-09] MEDS: MethylPREDNISolone 125 MG/2 ML Vial IV (09:32)
[2024-06-09 09:46] LABS: Anion Gap 9 (5-15); BUN 9 mg/dL (7-18); BUN/Creat Ratio 10.9 RATIO (10-20); Calcium,Total 9.5 mg/dL (8.5-10.1); Chloride 102 mmol/L (98-107); Creatinine, Serum 0.82 mg/dL (0.55-1.02); EST Glomerular Filtration Rate 74 mL/min (>60); Est Glom Filt Rate - Afr Amer 90 mL/min (>60); Estimated Creatinine Clearance 61.43 ml/min; Glucose 98 mg/dL (74-106); Potassium 4.3 mmol/L (3.5-5.1); Sodium Level 142 mmol/L (136-145); Troponin-I HS 6 pg/mL (3.0-54.0)
--- NOTE | 2024-06-09 11:08 | HP.PCM.HOS_ITS ---
HPI - General General Date of Admission: 06/09/24 Date of Service: 06/09/24 Chief Complaint: Shortness of breath, hypoxia HPI Narrative SHANNAN RUIZ, is a 63 F with a diagnosed COPD on PFT came to ED with shortness of breath for 4 to 5 days and hypoxia. Patient has chronic cough due to COPD but it got more worse for 4 to 5 days with increasing severity, thick sputum and shortness of breath. Denies any chronic heart disease/NE or CHF. She was recently seen by her PCP Dr. Rocha and at that time her pulse ox was 93% at rest and was given prednisone burst therapy for 5 days and levofloxacin 2 days back. She did not get better and came to ED with hypoxia 88% on room air and dyspnea on exertion. Vitals in ED shows tachycardia and tachypnea and mild hypoxia Chest x-ray done in ED individually reviewed and shows mild atelectasis in the lung bases Patient was given DuoNeb inhaler and Solu-Medrol and further admitted [facility] Medical History Mammogram declined Colonoscopy refused Fatigue Screening for thyroid disorder Tobacco use disorder, continuous Bilateral ankle pain Bilateral knee pain Asthma-COPD overlap syndrome Encounter to establish care History of tobacco use Encounter for screening for malignant neoplasm of lung in current smoker with 30 pack year history or greater Dyspnea COPD (chronic obstructive pulmonary disease) Encounter for screening for COVID-19 Acute bronchitis, unspecified Home Medications ?Medication ?Instructions ?Recorded ?Last Taken ?Type budesonide-formoterol HFA 160 See Rx Instructions .Route 03/31/24 06/09/24 Rx mcg-4.5 mcg/actuation aerosol .COMPLEX #11 grams inhaler inhalational spacing device #1 ea 03/31/24 Unknown Rx (BreatheRite MDI Spacer) benzonatate 100 mg capsule 100 mg PO BID-TID PRN cough #90 06/07/24 06/09/24 Rx caps levofloxacin 750 mg tablet 750 mg PO Q24H #5 tabs 06/07/24 06/08/24 Rx prednisone 20 mg tablet 20 mg PO QDAY #10 tabs 06/07/24 06/08/24 Rx albuterol sulfate 90 mcg/actuation 2 puff inhalation Q4H PRN 06/09/24 06/09/24 History aerosol inhaler (Ventolin HFA) Wheezing/SOB guaifenesin 600 mg tablet, 1,200 mg PO Q12H PRN cough 06/09/24 06/08/24 History extended release 12 hr (Mucinex) Allergy/AdvReac Type Severity Reaction Status Date / Time weir Allergy unknown Verified 06/09/24 08:46 Fish Containing Products Allergy Vomiting Verified 06/09/24 08:46 macadamia nut oil Allergy Hives Verified 06/09/24 08:46 Family History Mother Cancer Hodgkin disease Hypertension Diabetes Brother Cancer Diabetes Son Cancer Surgical History History of hernia repair History of dental surgery Social History Smoking Status: Current every day smoker tobacco type: cigarettes Tobacco: How many years used: 40 how long ago did patient quit smoking: smoked [id number], then [id number], now smokes 5-6 cigarettes/day alcohol intake: current alcohol intake frequency: holidays/special occasions only substance use type: does not use what type of physical activity do you participate in: none ROS ROS Narrative Constitutional: Reports fatigue and weakness. No fever. HEENT: Reports systems reviewed and no addt'l complaints, except as documented Respiratory/Chest: As described in HPI continues to smoke CVS: Denies CHF CAD or NE. Gastrointestinal: Denies coffee ground emesis, hematemesis or vomiting Genitourinary: Denies burning urination or new urinary tract symptoms Musculoskeletal: Denies acute joint pain or limited range of motion. No acute injury Neurologic: Denies seizure-like symptoms. skin: No ulcer. No rash Endocrinology: Reports systems reviewed and no addt'l complaints, except as documented Hematologic/Lymphatic: Reports systems reviewed and no addt'l complaints, except as documented Rest 14 ROS are negative except as mentioned in HPI Vital Signs Vital Signs Vital Signs: 06/09/24 08:43 06/09/24 08:46 06/09/24 09:10 Temperature 96.6 F L Temperature Source Temporal Pulse Rate 113 H 117 H Respiratory Rate 24 H 20 H Respiratory Effort Respiratory Depth Respiratory Pattern Normal Blood Pressure 171/108 H Blood Pressure Mean 129 Pulse Ox 88 96 Oxygen Delivery Method Room Air Nasal Cannula Oxygen Flow Rate (L/min) 2 06/09/24 09:34 06/09/24 09:36 06/09/24 09:46 Temperature Temperature Source Pulse Rate 104 H Respiratory Rate 16 Respiratory Effort Short of Breath Respiratory Depth Shallow Respiratory Pattern Tachypnea Normal Blood Pressure Blood Pressure Mean Pulse Ox Oxygen Delivery Method Nasal Cannula Oxygen Flow Rate (L/min) 3 06/09/24 09:46 06/09/24 10:19 Temperature 97.3 F L Temperature Source Temporal Pulse Rate 105 H 108 H Respiratory Rate 24 H 20 H Respiratory Effort Respiratory Depth Respiratory Pattern Normal Blood Pressure 114/76 Blood Pressure Mean 88 Pulse Ox 93 Oxygen Delivery Method Nasal Cannula Oxygen Flow Rate (L/min) 3 Weight Weight: 126 lb 8.725 oz Body Mass Index (BMI) 21.7 Physical Exam Narrative General: Alert, Oriented x3, Cooperative, BMI 21.7 kg/m? HEENT: Atraumatic, PERRLA, EOMI, Normocephalic Oral: No Gingival or Mucosal Lesions/ Ulcerations Neck: Supple, No JVD, Negative Carotid Bruits Chest wall/Lungs: Air entry severely diminished in all lung leon. Bilateral expiratory fine rhonchi. Cardiovascular: Sinus tachycardia, Normal S1, Normal S2, No M/G/R Abdomen: Bowel Sounds Present, Soft, Non Tender, Non-Distended : No dysuria. No renal angle tenderness. No suprapubic tenderness. Extremities: No edema, Capillary Refill Less than 3 Seconds Skin: No rashes, No breakdown Musculoskeletal: No Tenderness to Palpation of Joints or Extremities, decreased muscle bulk in all 4 extremities. Neurological: Cranial nerves II-XII grossly intact, DTR 2+/4. No acute focal neurological deficit. Psych/Mental Status: Flat affect Results Lab / Micro Data 06/09/24 09:07 06/09/24 09:07 Labs: Laboratory Results - last 24 hr 06/09/24 09:07: WBC 9.6, RBC 5.34, Hgb 15.5 H, Hct 47.8 H, MCV 89.5, MCH 29.0, MCHC 32.4, RDW Std Deviation 45.1 H, RDW Coeff of Kimberly 13.7, Plt Count 309, MPV 10.0, Immature Gran % (Auto) 0.400, Neut % (Auto) 68.0, Lymph % (Auto) 20.0, M hakan % (Auto) 10.1 H, Eos % (Auto) 0.7, Baso % (Auto) 0.8, Absolute Neuts (auto) 6.6, Absolute Lymphs (auto) 1.93, Nucleated RBC % 0, D-Dimer Quant (PE/DVT) Cancelled, Sodium 142, Potassium 4.3, Chloride 102, Carbon Dioxide 31.0, Anion Gap 9, BUN 9, Creatinine 0.82, Estim Creat Clear Calc 61.43, Est GFR (MDRD) Af Amer 90, Est GFR (MDRD) Non-Af 74, BUN/Creatinine Ratio 10.9, Glucose 98, Calcium 9.5, Troponin I High Sens 6 Imaging Radiology Impression Chest X-Ray 06/09/24 08:58 IMPRESSION: Mild atelectasis or inflammation in the lung bases, decreased from prior. Electronically Signed: Rocío Guerrero MD at 9:40 EST , Assessment & Plan Assessment/Plan (1) COPD exacerbation: (2) Hypoxemia: PLAN: Plan This is 63-year-old female is being admitted for COPD exacerbation 1. COPD exacerbation with mild hypoxia: Admit on MedSur floor. Chest x-ray negative UA shows mild atelectasis in lung bases otherwise chronic hyperinflated. Twelve-lead EKG shows sinus tachycardia 110 bpm. The patient is being managed on scheduled bronchodilator, IV Solu-Medrol, Mucinex, incentive spirometry and Pep. Triple PCR for COVID, RSV ordered. Patient also started on Zithromax for COPD exacerbation. Does not seem patient has pneumonia. Echo ordered to see RV function/rule out chronic cor pulmonale. H&H 15.5/47.8% more than normal but does not meet criteria for erythrocytosis. 2. Chronic smoker: Patient continues to smoke 3 to 4 cigarettes up to half pack states 1 cigarette last 4 4 hours. Started smoking at the age of 11. She follows in oncology for low-dose CT screening and was reported exam lung RADS category 2 and advised annual screening. Nicotine patch offered. Advised quitting smoking 3. Mild bilateral chronic knee pain possible early arthritis: PT and OT ordered. DVT prophylaxis, high risk: Lovenox 40mg subcu daily ordered Living will/advanced directive/end of life care: Patient does not have living will or advanced directive. Her is near the bedside but next to kin is her son. After discussion of benefits/risks procedures involved with full code, DNR CC arrest and DNR CC, the patient opted for full code but wanted resuscitation for short time and does not want to prolong her life on ventilator or life support. Patient does want artificial life support including intubation, tube feed, ventilator and/chest compression, central venous catheter, vasopressor and DC shock if needed Total time spent in [id number] encounter in discussion of advanced directive 17 minutes. Charges/Coding Visit Charges Inpatient E&M: 51232 Init Hosp L3 Procedures Hospitalists Procedures: 56920 Advncd Care Plan 30 Min
--- NOTE | 2024-06-09 11:37 | ECHOD_ITS ---
Reason For Study: SOB Procedure This was a 2D Doppler, Color Flow transthoracic echocardiogram. Exam performed portable in patient room. Left Ventricle Normal LV size. The estimated ejection fraction is 65 %. No evidence for diastolic dysfunction. No regional wall motion abnormalities noted. Right Ventricle Normal RV size. Normal systolic function. Atria The left and right atria are normal. No doppler evidence for ASD. Mitral Valve There is no mitral valve stenosis. No mitral valve insufficiency. Tricuspid Valve There is no tricuspid stenosis. Unable to estimate RV systolic pressure due to inadequate jet, pulmonary artery pressure probably normal. Aortic Valve Trisinus/trileaflet aortic valve. There is no aortic stenosis. No aortic valve insufficiency. Pulmonic Valve There is no pulmonic valvular stenosis. No pulmonic valve insufficiency. Great Vessels Normal aortic root. Pericardium/Pleural No pericardial effusion. MMode/2D Measurements & Calculations LVIDd: 5.0 cm IVSd: 1.1 cm LAV(MOD-bp): 33.4 ml LVIDs: 3.6 cm LVPWd: 0.72 cm LAV(MOD-bp) Indexed: 20.8 ml/m2 RVDd: 2.9 cm FS: 28.7 % LAV(MOD-sp2): 36.6 ml LAV(MOD-sp4): 27.0 ml SV(MOD-sp4): 44.3 ml SV(sp4-el): 46.4 ml LVAd ap4: 24.0 cm2 LVLd ap4: 6.9 cm SI(MOD-sp4): 27.6 ml/m2 EDV(MOD-sp4): 69.8 ml EDV(sp4-el): 70.9 ml LVAs ap4: 13.2 cm2 LVLs ap4: 6.0 cm ESV(MOD-sp4): 25.5 ml ESV(sp4-el): 24.5 ml EF(MOD-sp4): 63.5 % EF(sp4-el): 65.5 % LA A4 area: 12.4 cm2 LA dimension(2D): 3.0 cm RA A4 area: 10.3 cm2 TAPSE: 1.4 cm Time Measurements MV dec time: 0.17 sec Doppler Measurements & Calculations MV E max oleg: 85.2 cm/sec Lat Peak E' Oleg: 10.0 cm/sec Med Peak E' Oleg: 8.8 cm/sec MV A max oleg: 93.2 cm/sec E/E' lat: 8.5 E/E' med: 9.7 MV E/A: 0.91 MV V2 max: 101.0 cm/sec MV P1/2t max oleg: 79.6 cm/sec Ao V2 max: 129.2 cm/sec MV max P.1 mmHg MV P1/2t: 50.5 msec Ao max P.7 mmHg MV V2 mean: 65.7 cm/sec MV mean P.9 mmHg MV dec slope: 461.9 cm/sec2 MV V2 VTI: 22.4 cm MVA(P1/2t): 4.4 cm2 LV V1 max: 105.9 cm/sec PA V2 max: 105.5 cm/sec LV V1 max P.5 mmHg PA V2 mean: 76.8 cm/sec ECHO/Echo Complete Interpretation Summary The estimated ejection fraction is 65 %. No evidence for diastolic dysfunction. Ordering Physician: Washington Robb Performed By: Wm Ramos [facility]
[2024-06-09 11:46] LABS: D-Dimer Quantitative (DVT/PE) < 0.27 FEU/ug/m (0.27-0.49)
[2024-06-09] MEDS: Benzonatate 100 MG Capsule PO ×2 (13:31→23:46)
[2024-06-09] MEDS: guaiFENesin 1,200 MG Tablet 1200 MG PO ×2 (13:31→21:43)
[2024-06-09] MEDS: Enoxaparin 40 MG/0.4 ML Syringe SC (13:31)
[2024-06-09] MEDS: Azithromycin 250 MG Tablet 500 MG PO (13:31)
[2024-06-09] MEDS: 0.9% Saline Lock 10 ML Syringe IV (21:43)
[2024-06-09] MEDS: Senna/Docusate Sodium 1 Tablet 2 TABLET PO (21:43)
[2024-06-10] VITALS (14 sets, daily range): BP systolic 111–148; BP diastolic 62–98; PULSE 80–106; RESP 17–22; TEMP 36.3–36.7; O2SAT 88–96
[2024-06-10 05:55] LABS: Absolute Lymphocyte Count 1.14 X10^3/uL (0.83-4.51); Absolute Neutrophil Count 9.1 X10^3/uL (2.0-7.7); Basophil# 0.01 X10^3/uL; Basophil% 0.1 % (0-1); Hematocrit 44.4 % (37-47); Hemoglobin 14.3 g/dL (12.0-15.0); Lymphocyte # 1.14 X10^3/ul (0.83-4.51); Lymphocyte % 10.5 % (19-41); Mean Corp Hgb Conc 32.2 g/dL (32-36); Mean Corpuscular Hgb 28.7 pg (27.0-32.0); Mean Platelet Vol. 10.1 fl (6.2-12.0); Monocyte# 0.55 X10^3/uL; Monocyte% 5.1 % (0-10); NRBC Flagged by Analyzer 0 % (0-5); Neutrophil # 9.09 X10^3/uL (2.7-7.7); Neutrophil % 83.7 % (47-70); Platelet Count 329 K/mm3 (150-450); RBC Distribution Width CV 13.8 % (11.6-14.6); RBC Distribution Width SD 45.1 fl (35.1-43.9); Red Blood Count 4.99 M/mm3 (4.2-5.4); White Blood Count 10.9 K/mm3 (4.4-11.0)
[2024-06-10] MEDS: 0.9% Saline Lock 10 ML Syringe IV ×4 (06:19→22:01)
[2024-06-10] MEDS: Benzonatate 100 MG Capsule PO ×2 (06:26→17:17)
[2024-06-10 06:52] LABS: Anion Gap 7 (5-15); BUN 13 mg/dL (7-18); BUN/Creat Ratio 19.4 RATIO (10-20); Chloride 106 mmol/L (98-107); Creatinine, Serum 0.67 mg/dL (0.55-1.02); EST Glomerular Filtration Rate 95 mL/min (>60); Est Glom Filt Rate - Afr Amer 115 mL/min (>60); Estimated Creatinine Clearance 74.85 ml/min; Glucose 152 mg/dL (74-106); Potassium 4.2 mmol/L (3.5-5.1); Sodium Level 139 mmol/L (136-145)
[2024-06-10] MEDS: Ipratropium/Albuterol Sulfate 3 ML AMPUL.NEB INHALATION ×4 (06:55→20:19)
[2024-06-10] MEDS: Enoxaparin 40 MG/0.4 ML Syringe SC (10:30)
[2024-06-10] MEDS: Senna/Docusate Sodium 1 Tablet 2 TABLET PO (10:31)
[2024-06-10] MEDS: guaiFENesin 1,200 MG Tablet 1200 MG PO ×2 (10:31→22:00)
[2024-06-10] MEDS: Azithromycin 250 MG Tablet 500 MG PO (10:31)
--- NOTE | 2024-06-10 11:24 | PCM.PN.HOSP ---
Reason for Visit Reason for Visit: Diagnoses Chronic obstructive pulmonary disease with (acute) exacerbation (06/09/24) Hypoxemia (06/09/24) Subjective Subjective Patient is a 63-year-old lady with history of COPD who continues to smoke presented to the emergency department with progressive shortness of breath Objective Data Objective Data Vital Signs: Vital Signs Temp Pulse Resp BP Pulse Ox O2 Del Method O2 Flow Rate 97.9 F 84 18 123/76 H 95 Nasal Cannula 2 06/10/24 08:45 06/10/24 08:45 06/10/24 08:45 06/10/24 08:45 06/10/24 10:00 06/10/24 10:00 06/10/24 10:00 Oxygen Flow Rate (L/min) 2 Oxygen Delivery Method Nasal Cannula Weight: 61 kg Body Mass Index (BMI) 24.5 Intake & Output: Intake and Output for Last 24 Hours 06/08/24 06/09/24 06/10/24 23:59 23:59 23:59 Intake Total 480 / 600 360 / 360 Balance 480 / 600 360 / 360 Lab / Micro Data 06/10/24 05:28 06/10/24 05:28 Labs: Laboratory Results - last 24 hr 06/09/24 09:55: D-Dimer Quant (PE/DVT) < 0.27 L 06/10/24 05:28: WBC 10.9, RBC 4.99, Hgb 14.3, Hct 44.4, MCV 89.0, MCH 28.7, MCHC 32.2, RDW Std Deviation 45.1 H, RDW Coeff of Kimberly 13.8, Plt Count 329, MPV 10.1, Immature Gran % (Auto) 0.600, Neut % (Auto) 83.7 H, Lymph % (Auto) 10.5 L, Zapata % (Auto) 5.1, Eos % (Auto) 0.0, Baso % (Auto) 0.1, Absolute Neuts (auto) 9.1 H, Absolute Lymphs (auto) 1.14, Nucleated RBC % 0, Sodium 139, Potassium 4.2, Chloride 106, Carbon Dioxide 26.0, Anion Gap 7, BUN 13, Creatinine 0.67, Estim Creat Clear Calc 74.85, Est GFR (MDRD) Af Amer 115, Est GFR (MDRD) Non-Af 95, BUN/Creatinine Ratio 19.4, Glucose 152 H, Calcium 9.0 Micro: Microbiology 06/09/24 11:26 Mucosa - Nose SARS-CoV-2, Influenza & RSV (PCR) - Final Radiography Diagnostic Testing: Radiology Impression Echocardiogram 06/09/24 11:37 Interpretation Summary The estimated ejection fraction is 65 %. No evidence for diastolic dysfunction. Ordering Physician: Washington Robb Performed By: Wm Ramos RCS Physical Exam Narrative GENERAL: cooperative but dyspneic at rest HEENT: Atraumatic; normocephalic EYES; Anicteric, Normal Conjunctiva NECK; supple, normal thyroid, RESPIRATORY: Diminished to auscultation CARDIOVASCULAR: Regular S1 S2, GI: soft, normoactive bowel sounds, : No Renal angle tenderness; EXTREMITIES: No edema, no clubbing, MUSCULOSKELETAL: no muscle wasting NEURO: Awake; no lateralizing signs. SKIN: No Rash PSYCH; Flat affect Assessment & Plan Assessment/Plan (1) COPD exacerbation: (2) Hypoxemia: PLAN: Plan Patient is a 63-year-old lady with history of COPD who continues to smoke presented to the emergency department with progressive shortness of breath 1. Acute hypoxia ? Secondary to COPD with acute exacerbation. Admitted to monitored bed ordered viral respiratory panel to rule out viral etiology patient management systemic steroid Mucinex incentive spirometry as well as Zithromax. Oxygen titrated to keep saturation greater than 90. Patient will need to be assessed for home oxygen prior to discharge 2. Tobacco dependence ? Counseled on cessation, offered nicotine patch for tobacco cravings 3. Generalized osteoarthritis ? Pain meds as needed 4. Erythrocytosis ? Thought to be reactive following patient chronic hypoxia from COPD we will monitor with daily CBC with differential 5. Hyperglycemia ? Secondary to patient being on concomitant steroids will monitor 6. DVT prophylaxis ? On enoxaparin Time spent in the patient's overall evaluation,decision-making process, review of diagnostic data, adjustment of management, discussion with other providers, nursing nursing and ancillary staff involved in patient's care documentation, 50 Minutes Charges/Coding Visit Charges Inpatient E&M: 05790 Subs Hosp L3
--- NOTE | 2024-06-10 16:00 | CASEMGMT ---
RN SARAH [employer] SARAH?to room to meet with patient for initial transition planning/care coordination assessment. RN SARAH?introduced self and role at [facility]. Pt voices understanding and consents to assessment?at this time. Pt sitting on edge of bed in no distress at this time. Pt is A/O at this time and answers all questions appropriately. Care providers, pharmacy, and demographics verified/updated at this time. Strata:?2 PCP: Dr Rocha Specialists: none Preferred Pharmacy: [facility] Insurance: [employer] Prescription Benefit: yes LNOK: Son, Jordi. Son, Kushal. Dtr, Sahra Living Arrangements: Lives w/sig other (Yogi), son (Jordi), and step-son (Logan), in 2-story home, stating can do FFSU, if needed. Independent. Transportation:?Pt states drives self and states no transportation concerns at this time. Yogi will take her home @ discharge. DME: Pt does not have home O2 or a nebulizer. Verbal list of local DME companies reviewed and pt chose [employer]. Pt does not have a nebulizer and states would like this @ wi. TRAFFIC EXPERT SARAH, Abigail, made aware. Pt states she does have a pulse ox and BP machine. HHC/SNF: No hx of either. Pt wishes to return home and states has no concerns with going home at time of discharge. She declines wanting HHC, OP therapy, CCN, or Pt Link. CM?to follow for home oxygen needs and any further discharge planning/needs. Pt voices no further concerns/needs at this time. Advised pt to ask for CM?if any further questions/concerns/needs arise. Voices understanding. PLAN: Home Follow for nebulizer and possible Home O2 Bassem VARNER RN, CM
[2024-06-11] VITALS (8 sets, daily range): BP systolic 138–145; BP diastolic 77–88; PULSE 80–97; RESP 16–20; TEMP 36.4–36.5; O2SAT 85–96
[2024-06-11] MEDS: Ipratropium/Albuterol Sulfate 3 ML AMPUL.NEB INHALATION ×5 (03:28→15:27)
[2024-06-11] MEDS: 0.9% Saline Lock 10 ML Syringe IV (06:16)
[2024-06-11 06:58] LABS: Absolute Lymphocyte Count 1.39 X10^3/uL (0.83-4.51); Absolute Neutrophil Count 12.5 X10^3/uL (2.0-7.7); Basophil# 0.02 X10^3/uL; Basophil% 0.1 % (0-1); Eosinophil# 0.01 X10^3/uL; Eosinophils% 0.1 % (0-5); Hematocrit 45.1 % (37-47); Hemoglobin 14.3 g/dL (12.0-15.0); Lymphocyte # 1.39 X10^3/ul (0.83-4.51); Lymphocyte % 9.4 % (19-41); Mean Corp Hgb Conc 31.7 g/dL (32-36); Mean Corpuscular Hgb 28.5 pg (27.0-32.0); Mean Corpuscular Volume 89.8 fL (81-99); Mean Platelet Vol. 10.5 fl (6.2-12.0); Monocyte# 0.74 X10^3/uL; NRBC Flagged by Analyzer 0 % (0-5); Neutrophil # 12.48 X10^3/uL (2.7-7.7); Neutrophil % 84.5 % (47-70); Platelet Count 341 K/mm3 (150-450); RBC Distribution Width CV 13.9 % (11.6-14.6); RBC Distribution Width SD 45.7 fl (35.1-43.9); Red Blood Count 5.02 M/mm3 (4.2-5.4); White Blood Count 14.8 K/mm3 (4.4-11.0)
--- NOTE | 2024-06-11 07:52 | PCM.PN.HOSP ---
Reason for Visit Reason for Visit: Diagnoses Chronic obstructive pulmonary disease with (acute) exacerbation (06/09/24) Hypoxemia (06/09/24) Subjective Subjective Patient seen plan is for patient to be assessed for home oxygen prior to being discharged. Objective Data Objective Data Vital Signs: Vital Signs Temp Pulse Resp BP Pulse Ox O2 Del Method O2 Flow Rate 97.6 F L 80 18 145/77 H 96 Nasal Cannula 2 06/11/24 03:30 06/11/24 03:30 06/11/24 03:30 06/11/24 03:30 06/11/24 03:30 06/11/24 05:24 06/11/24 05:24 Oxygen Flow Rate (L/min) 2 Oxygen Delivery Method Nasal Cannula Weight: 61 kg Body Mass Index (BMI) 24.5 Intake & Output: Intake and Output for Last 24 Hours 06/09/24 06/10/24 06/11/24 23:59 23:59 23:59 Intake Total 480 / 600 960 / 960 Balance 480 / 600 960 / 960 Lab / Micro Data 06/11/24 06:01 06/11/24 06:01 Labs: Laboratory Results - last 24 hr 06/11/24 06:01: WBC 14.8 H, RBC 5.02, Hgb 14.3, Hct 45.1, MCV 89.8, MCH 28.5, MCHC 31.7 L, RDW Std Deviation 45.7 H, RDW Coeff of Kimberly 13.9, Plt Count 341, MPV 10.5, Immature Gran % (Auto) 0.900, Neut % (Auto) 84.5 H, Lymph % (Auto) 9.4 L, Corson % (Auto) 5.0, Eos % (Auto) 0.1, Baso % (Auto) 0.1, Absolute Neuts (auto) 12.5 H, Absolute Lymphs (auto) 1.39, Nucleated RBC % 0 Micro: Microbiology 06/09/24 11:26 Mucosa - Nose SARS-CoV-2, Influenza & RSV (PCR) - Final Radiography Diagnostic Testing: Radiology Impression Echocardiogram 06/09/24 11:37 Interpretation Summary The estimated ejection fraction is 65 %. No evidence for diastolic dysfunction. Ordering Physician: Washington Robb Performed By: Wm Ramos RCS Physical Exam Narrative GENERAL: cooperative HEENT: Atraumatic; normocephalic EYES; Anicteric, Normal Conjunctiva NECK; supple, normal thyroid, RESPIRATORY: Diminished to auscultation CARDIOVASCULAR: Regular S1 S2, GI: soft, normoactive bowel sounds, : No Renal angle tenderness; EXTREMITIES: No edema, no clubbing, MUSCULOSKELETAL: no muscle wasting NEURO: Awake; no lateralizing signs. SKIN: No Rash PSYCH; Flat affect Assessment & Plan Assessment/Plan (1) COPD exacerbation: (2) Hypoxemia: PLAN: Plan Patient is a 63-year-old lady with history of COPD who continues to smoke presented to the emergency department with progressive shortness of breath 1. Acute hypoxia ? Secondary to COPD with acute exacerbation. Admitted to monitored bed ordered viral respiratory panel to rule out viral etiology patient management systemic steroid Mucinex incentive spirometry as well as Zithromax. Oxygen titrated to keep saturation greater than 90. Patient will need to be assessed for home oxygen prior to discharge ? 06/11/2024 order placed for patient to be assessed for home oxygen 2. Tobacco dependence ? Counseled on cessation, offered nicotine patch for tobacco cravings 3. Generalized osteoarthritis ? Pain meds as needed 4. Erythrocytosis ? Thought to be reactive following patient chronic hypoxia from COPD we will monitor with daily CBC with differential 5. Hyperglycemia ? Secondary to patient being on concomitant steroids will monitor 6. DVT prophylaxis ? On enoxaparin Time spent in the patient's overall evaluation,decision-making process, review of diagnostic data, adjustment of management, discussion with other providers, nursing nursing and ancillary staff involved in patient's care documentation, 35 Minutes
[2024-06-11 07:58] LABS: Anion Gap 6 (5-15); BUN 18 mg/dL (7-18); BUN/Creat Ratio 25.9 RATIO (10-20); Calcium,Total 8.9 mg/dL (8.5-10.1); Chloride 106 mmol/L (98-107); EST Glomerular Filtration Rate 91 mL/min (>60); Est Glom Filt Rate - Afr Amer 110 mL/min (>60); Estimated Creatinine Clearance 71.64 ml/min; Glucose 128 mg/dL (74-106); Magnesium 2.5 mg/dL (1.6-2.6); Phosphorus 3.7 mg/dL (2.5-4.9); Sodium Level 140 mmol/L (136-145)
[2024-06-11] MEDS: Azithromycin 250 MG Tablet 500 MG PO (09:37)
[2024-06-11] MEDS: guaiFENesin 1,200 MG Tablet 1200 MG PO (09:37)
[2024-06-11] MEDS: Enoxaparin 40 MG/0.4 ML Syringe SC (09:37)
--- NOTE | 2024-06-11 11:26 | DS.PCM_ITS ---
Providers Date of Admission: 06/09/24 Date of Discharge: 06/11/24 Primary Care Physician: Dr. Helen Rocha MD Reason For Visit: COPD EXA Diagnosis Discharge Diagnosis (1) COPD exacerbation: Status: Chronic Code(s): J44.1 - Chronic obstructive pulmonary disease with (acute) exacerbation (2) Hypoxemia: Status: Acute Code(s): R09.02 - Hypoxemia Plan Patient is a 63-year-old lady with history of COPD who continues to smoke presented to the emergency department with progressive shortness of breath 1. Acute hypoxia ? Secondary to COPD with acute exacerbation. Admitted to monitored bed ordered viral respiratory panel to rule out viral etiology patient management systemic steroid Mucinex incentive spirometry as well as Zithromax. Oxygen titrated to keep saturation greater than 90. Patient will need to be assessed for home oxygen prior to discharge ? 06/11/2024 order placed for patient to be assessed for home oxygen 2. Tobacco dependence ? Counseled on cessation, offered nicotine patch for tobacco cravings 3. Generalized osteoarthritis ? Pain meds as needed 4. Erythrocytosis ? Thought to be reactive following patient chronic hypoxia from COPD we will monitor with daily CBC with differential 5. Hyperglycemia ? Secondary to patient being on concomitant steroids will monitor 6. DVT prophylaxis ? On enoxaparin Time spent in the patient's overall evaluation,decision-making process, review of diagnostic data, adjustment of management, discussion with other providers, nursing nursing and ancillary staff involved in patient's care documentation, 35 Minutes Medications at Discharge Home Medications budesonide-formoterol HFA 160 mcg-4.5 mcg/actuation aerosol inhaler See Rx Instructions .Route .COMPLEX #11 grams 03/31/24 inhalational spacing device (BreatheRite MDI Spacer) #1 ea 03/31/24 benzonatate 100 mg capsule 100 mg PO BID-TID PRN cough #90 caps 06/07/24 albuterol sulfate 90 mcg/actuation aerosol inhaler (Ventolin HFA) 2 puff inhalation Q4H PRN Wheezing/SOB 06/09/24 guaifenesin 600 mg tablet, extended release 12 hr (Mucinex) 1,200 mg PO Q12H PRN cough 06/09/24 azithromycin 250 mg tablet 500 mg (2 x 250 mg) PO Q24 #5 tabs 06/11/24 ipratropium 0.5 mg-albuterol 3 mg (2.5 mg base)/3 mL nebulization soln 3 ml inhalation Q4H.RT #180 mL 06/11/24 prednisone 20 mg tablet 20 mg PO QDAY #10 tabs 06/11/24 Physical Exam Narrative GENERAL: cooperative HEENT: Atraumatic; normocephalic EYES; Anicteric, Normal Conjunctiva NECK; supple, normal thyroid, RESPIRATORY: Diminished to auscultation CARDIOVASCULAR: Regular S1 S2, GI: soft, normoactive bowel sounds, : No Renal angle tenderness; EXTREMITIES: No edema, no clubbing, MUSCULOSKELETAL: no muscle wasting NEURO: Awake; no lateralizing signs. SKIN: No Rash PSYCH; Flat affect Weight / BMI Weight Weight: 61 kg Body Mass Index (BMI) 24.5 ABG / Lab / Microbiology Data 06/11/24 06:01 06/11/24 06:01 Laboratory: Laboratory Results - last 24 hr 06/11/24 06:01: WBC 14.8 H, RBC 5.02, Hgb 14.3, Hct 45.1, MCV 89.8, MCH 28.5, M CHC 31.7 L, RDW Std Deviation 45.7 H, RDW Coeff of Kimberly 13.9, Plt Count 341, MPV 10.5, Immature Gran % (Auto) 0.900, Neut % (Auto) 84.5 H, Lymph % (Auto) 9.4 L, Donley % (Auto) 5.0, Eos % (Auto) 0.1, Baso % (Auto) 0.1, Absolute Neuts (auto) 12.5 H, Absolute Lymphs (auto) 1.39, Nucleated RBC % 0, Sodium 140, Potassium 4.0, Chloride 106, Carbon Dioxide 28.0, Anion Gap 6, BUN 18, Creatinine 0.70, Estim Creat Clear Calc 71.64, Est GFR (MDRD) Af Amer 110, Est GFR (MDRD) Non-Af 91, BUN/Creatinine Ratio 25.9 H, Glucose 128 H, Calcium 8.9, Phosphorus 3.7, Magnesium 2.5 Microbiology: Microbiology 06/09/24 11:26 Mucosa - Nose SARS-CoV-2, Influenza & RSV (PCR) - Final D/C Instructions Discharge Diet: No restrictions Discharge Activity: Return to Normal Activity Call your doctor if you observe: Fever of 101 or Higher, Shortness of breath, Fainting spells and Chest pain DC O2, CPAP, BIPAP Needs RN Home O2 Qualification: Home O2 Qualification: Is the patient on home oxygen No 06/11/24 12:00 Home O2 Qualification: AT REST 1- Pulse Ox at rest 85 06/11/24 12:00 2- Pulse Ox at rest 92 06/11/24 12:00 2- Oxygen Flow Rate at rest 2 06/11/24 12:00 Home O2 Qualification: WITH AMBULATION 1- Pulse Ox with ambulation 90 06/11/24 12:00 1- Oxygen Flow Rate with 2 06/11/24 12:00 ambulation Home O2 Discharge instructions: Yes Type of respiratory needs?: Oxygen Oxygen frequency: Continuous Continuous oxygen liters per minute: 2l DC home with Oxygen: Yes Home O2 MD Review: I have reviewed the oxygen testing, and the patient qualifies for home oxygen equipment and portability. The patient is mobile in the home and the community. Meaningful Use Info Meaningful Use Meaningful Use Diagnoses (Choose all that apply): None applicable Ischemic Stroke Statin Dosing Therapy Reference: STATIN DOSE THERAPY REFERENCE: * Patients > 75 years receive moderate or high dose statin therapy. * Patients 75 years or YOUNGER should receive HIGH intensity statin dose unless contraindicated. You will be required to document reason for non-treatment if statin daily dose does not meet guidelines. HIGH DOSE STATIN THERAPY DAILY Atorvastatin > than or = to 40 mg Rosuvastatin > than or = to 20 mg Amlodipine + Atorvastatin > than or = to 2.5/40 mg Ezetimibe + Simvastatin 10/80 mg Simvastatin 80mg Discharge Plan Admission Admit Date/Time: 06/09/24 11:03 Attending Provider: Dexter Allen Primary Care Provider: Helen Rocha Consulting Providers: [place] Discharge Orders/Prescriptions Prescriptions: New azithromycin 250 mg Tablet 500 mg PO Q24 Qty: 5 0RF ipratropium-albuterol 0.5 mg-3 mg(2.5 mg base)/3 mL Solution For Nebulization 3 ml inhalation Q4H.RT Qty: 180 0RF Continued benzonatate 100 mg capsule 100 mg PO BID-TID PRN (Reason: cough) Qty: 90 2RF (DME) BreatheRite MDI Spacer Spacer See Rx Instructions .Route Qty: 1 0RF Rx Instructions: As directed for use with each inhaler budesonide-formoterol 160-4.5 mcg/actuation HFA aerosol inhaler See Rx Instructions .ROUTE .COMPLEX Qty: 11 4RF Dose Instruction: Inhale 2 puffs by mouth twice daily Rx Instructions: Inhale 2 puffs by mouth twice daily guaifenesin [Mucinex] 600 mg tablet extended release 12hr 1,200 mg PO Q12H PRN (Reason: cough) albuterol sulfate [Ventolin HFA] 90 mcg/actuation HFA aerosol inhaler 2 puff inhalation Q4H PRN (Reason: Wheezing/SOB) prednisone 20 mg tablet 20 mg PO QDAY Qty: 10 0RF Discontinued levofloxacin 750 mg tablet 750 mg PO Q24H Qty: 5 0RF Referrals / Follow Up: Helen Rocha MD [Primary Care Provider] - Within 1 Week Disposition Disposition (needs filled in before D/C Order can be placed): Home, Self Care Charges/Coding Visit Charges Inpatient E&M: 35118 Disch Hosp >30min
--- NOTE | 2024-06-11 12:27 | CASEMGMT ---
Patient has order for discharge. Patient qualifies for home oxygen. RN CM in to discuss needs at discharge. Patient prefers [facility] for home oxygen. Patient is also requesting shower chair for at discharge and [facility] Patient denies further needs or concerns at discharge. Patient had no further questions or concerns. RAJENDRA SMITH received scripts. Referral sent to [facility] via [facility] and requested oxygen tank be delivered to patient's room. RN SARAH provided script for shower chair in discharge packet. Discharge plan updated.
== END 2024-06-11 16:17 | disposition home or self-care (01) | DRG 140 ==
LOC: ED 11:12 → PCU 06-10 07:19
PROVIDERS: Admitting Provider Internal Medicine; Emergency Provider Emergency Medicine; PCP Internal Medicine; Visit Provider Internal Medicine
DX: J44.1 Chronic obstructive pulmonary disease with (acute) exacerbation (principal); D75.1 Secondary polycythemia; F17.210 Nicotine dependence, cigarettes, uncomplicated; M19.90 Unspecified osteoarthritis, unspecified site; J98.11 Atelectasis; R73.9 Hyperglycemia, unspecified; Z79.51 Long term (current) use of inhaled steroids; Z79.899 Other long term (current) drug therapy
CPT/HCPCS: Q9957; 36415; 71045; 80048; 83735; 84100; 84484; 85025; 85379; 87631; 93005; 93306; 94640; 94668; 94762; 96372; 96374; 96376; 97116; 97162; 99221; 99285; A4216; G0378

== ENCOUNTER 2024-07-02 18:51 | Outpatient (CLI) | payer MEDICAID, SELFPAY ==
--- NOTE | 2024-07-02 18:52 | CT_ITS ---
PROCEDURE: LOW DOSE CT LUNG SCREENING REASON FOR EXAM: COPD TECHNIQUE: Low Dose CT Lung Screening without contrast COMPARISON: 09/24/2022 FINDINGS: Lungs/Pleura:[id number] emphysematous disease is present. There are bands of atelectasis or scarring in the medial aspect of the right middle lobe, medial aspect of the right lower lobe and lingula, with some associated traction bronchiectasis.. No pulmonary nodule is identified.No pleural effusion or pneumothorax. Cardiovascular:The heart is normal in size.Mild coronary artery calcifications are present.There are mild scattered atherosclerotic calcifications in the thoracic aorta. The pulmonary arteries are unremarkable. Pericardium:No effusion. Mediastinum:Unremarkable. Lymph nodes:No lymph node enlargement identified on this noncontrast CT. Bones:No acute osseous abnormality. Soft tissues:Unremarkable. Upper abdomen:A few small cystic lesions are again noted in the liver which were also seen on the previous exam, possibly small cysts. CT/Low Dose CT Lung Screening IMPRESSION: 1. No suspicious pulmonary nodules. Lung-RADS category 1: Negative. Screening low-dose CT recommended in 12 months. 2. [id number] emphysematous disease. 3. Bands of atelectasis or scarring present multifocally. Reading Location: [facility]
== END 2024-07-02 23:59 | disposition home or self-care (01) ==
LOC: CT 18:52
PROVIDERS: PCP Internal Medicine; Referring Provider Physician Assistant; Visit Provider Physician Assistant
DX: Z12.2 Encounter for screening for malignant neoplasm of respiratory organs (principal); J44.9 Chronic obstructive pulmonary disease, unspecified; F17.210 Nicotine dependence, cigarettes, uncomplicated
CPT/HCPCS: 71271

== ENCOUNTER → 2024-07-07 | Outpatient (CLI) | payer MEDICAID, SELFPAY | END | disposition home or self-care (01) | PROVIDERS: PCP Internal Medicine; Referring Provider Physician Assistant; Visit Provider Physician Assistant | DX: R06.00 Dyspnea, unspecified (principal) | CPT/HCPCS: 93225; 93226 ==

== ENCOUNTER → 2024-08-03 | Outpatient (CLI) | payer MEDICAID, SELFPAY ==
[2024-08-03 13:37] LABS: Cholesterol 185 mg/dL (<=200); High Density Lipoprotein 66 mg/dL; Low Density Lipoprotein Calc. 105 mg/dL; Triglycerides 70 mg/dL; Very Low Density Lipoprotein 14 mg/dL (5-40); cholesterol:hdl ratio screen 2.82
== END | disposition home or self-care (01) ==
LOC: LAB 12:20
PROVIDERS: PCP Internal Medicine; Referring Provider Internal Medicine Cardiovascular Disease; Visit Provider Internal Medicine Cardiovascular Disease
DX: R53.82 Chronic fatigue, unspecified (principal)
CPT/HCPCS: 36415; 80061

== ENCOUNTER → 2024-09-13 | Outpatient (CLI) | payer MEDICAID, SELFPAY ==
--- NOTE | 2024-09-13 09:55 | STRESSREP_ITS ---
Stress Test Report Date: 09/13/2024 Procedure: Exercise tolerance test/imaging study Indications: Dyspnea Consent: Per the patient Procedure: The patient exercised on a Scott protocol for 3 minutes achieving a peak heart rate of 130 bpm (82% predicted maximal heart rate) with a peak blood pressure 170/80 mmHg and a peak MET capacity of 4 point METs. The baseline ECG demonstrated normal sinus rhythm. The peak exercise ECG demonstrated sinus tachycardia with no ischemic changes. Rare PVC noted. The functional capacity was considered suboptimal. There was no complaint of chest discomfort during exercise or recovery. The examination was discontinued secondary to complaints of dyspnea and leg fatigue. The patient was injected with 11.6 mCi of technetium 99m Cardiolite and subsequently rest SPECT Cardiolite nuclear imaging was obtained in the horizontal long, vertical long, and short axis views. Post-exercise, the patient was injected with 34.8 mCi of technetium 99m Cardiolite and subsequently stress SPECT Cardiolite nuclear imaging was obtained in the horizontal long, vertical long, and short axis views. A gated Cardiolite study at peak stress was obtained. Rest and stress SPECT Cardiolite nuclear imaging status post realignment, normalization, and attenuation correction, demonstrates a small reversible apical defect that may denote mild ischemia. Less than 5% myocardium involved. There is end systolic thickening and brightening. The gated Cardiolite study demonstrates myocardial thickening and inward wall motion. The reported LVEF is 64%. Impression: 1. Technically adequate exercise tolerance test 2. Peak exercise ECG with no ischemic changes 3. No significant arrhythmias noted pretest, during exercise or posttest. 4. Rest and stress SPECT Cardiolite nuclear imaging demonstrate small reversible apical defect, denoting mild ischemia involving less than 5% of myocardium. 5. The gated Cardiolite study reports an LVEF of 64%. This note was generated with [employer] software. It may contain incorrect words, spelling, and punctuation that were not noted in checking the note before signing.
== END | disposition home or self-care (01) ==
LOC: CVS 06:05
PROVIDERS: PCP Internal Medicine; Referring Provider Internal Medicine Cardiovascular Disease; Visit Provider Internal Medicine Cardiovascular Disease
DX: I25.10 Atherosclerotic heart disease of native coronary artery without angina pectoris (principal)
CPT/HCPCS: J2785; 78452; 93017; A9500; A4216

== ENCOUNTER → 2024-09-30 | Outpatient (CLI) | payer MEDICAID, SELFPAY ==
--- NOTE | 2024-09-30 10:35 | VDLE_ITS ---
Reason For Study Reason For Study: Pain RIGHT LEFT GSV is normal. CFV is compressible, spontaneous, phasic, competent, CFV is compressible, spontaneous, phasic, competent and demonstrates normal augmentation. and demonstrates normal augmentation. FV is compressible, spontaneous, phasic, competent and demonstrates normal augmentation. POP V is compressible, spontaneous, phasic, competent and demonstrates normal augmentation. T/P Trunk is compressible. PTV is compressible. RT PerV is compressible. Procedure This is a venous duplex using B-mode, color flow and spectral Doppler. Exam performed in department. A preliminary report was called and/or faxed to Helen Rocha MD. VL/Venous Duplex US, Unilateral Interpretation Summary Deep veins of the right lower extremity are patent and compressible segmentally . There is no evidence of right lower extremity deep vein thrombosis. The right great saphenous vein appears patent a nd compressible segmentally. Ordering Physician: Helen Rocha Referring Physician: Helen Rocha Performed By: Delia Basilio RVT
== END | disposition home or self-care (01) ==
LOC: CVS 10:32
PROVIDERS: PCP Internal Medicine; Referring Provider Internal Medicine; Visit Provider Internal Medicine
DX: M79.604 Pain in right leg (principal)
CPT/HCPCS: 93971

== ENCOUNTER → 2025-01-03 | Outpatient (CLI) | payer MEDICAID, SELFPAY ==
[2025-01-03 14:04] LABS: Hematocrit 40.5 % (37-47); Hemoglobin 13.3 g/dL (12.0-15.0); Immature Granulocytes Count 0.050 X10^3/uL (0.0-0.0); Mean Corp Hgb Conc 32.8 g/dL (32-36); Mean Corpuscular Volume 90.6 fL (81-99); Mean Platelet Vol. 10.6 fl (6.2-12.0); NRBC Flagged by Analyzer 0 % (0-5); Platelet Count 268 K/mm3 (150-450); RBC Distribution Width CV 14.1 % (11.6-14.6); RBC Distribution Width SD 46.9 fl (35.1-43.9); Red Blood Count 4.47 M/mm3 (4.2-5.4); White Blood Count 8.7 K/mm3 (4.4-11.0)
[2025-01-03 14:57] LABS: AST(SGOT) 15 U/L (<=31); Alanine Aminotransfer ALT/SGPT 16 U/L (<=34); Albumin, Serum 4.1 g/dL (3.4-4.8); Alkaline Phosphatase 95 U/L (35-104); Anion Gap 11 (5-15); BUN 13 mg/dL (4-19); BUN/Creat Ratio 17.8 RATIO (10-20); Calcium,Total 9.3 mg/dL (7.6-11.0); Carbon Dioxide 27.5 mmol/L (21.0-32.0); Chloride 104 mmol/L (98-108); Globulin 2.5 g/dL (2.2-4.2); Glucose 70 mg/dL (70-99); Potassium 4.2 mmol/L (3.3-5.1); Vitamin B12 431 pg/mL (180-914); Vitamin D,25 Hydroxy 12.8 ng/mL (30-100)
== END | disposition home or self-care (01) ==
LOC: LAB 12:59
PROVIDERS: PCP Internal Medicine; Referring Provider Internal Medicine; Visit Provider Internal Medicine
DX: J44.9 Chronic obstructive pulmonary disease, unspecified (principal); Z13.21 Encounter for screening for nutritional disorder; Z13.29 Encounter for screening for other suspected endocrine disorder
CPT/HCPCS: 36415; 80053; 82306; 82607; 84439; 84443; 85025